=== PATIENT | female | born 1955 | race Caucasian/White ===

== ENCOUNTER 2017-03-28 07:53 | Day surgery (SDC) | payer MEDICARE ==
[~2017-03-28 07:53] MED LIST: Lactated Ringers 1,000 ML IV ONE; Lactated Ringers 1,000 ML IV SCH
[2017-03-28] MEDS ORDERED: DIPRIVAN 200 MG/20 ML IV ONE (07:54)
[2017-03-28] MEDS ORDERED: CEFAZOLIN 2 GM-D5W BAG** 2 GM/50 ML ML IV ONE (08:52)
[2017-03-28] MEDS ORDERED: CEFAZOLIN 2 GM-D5W BAG** 2 GM/50 ML ML IV SCH (09:00)
--- NOTE | 2017-03-28 09:32 | HP ---
DATE OF SURGERY: 03/28/2017 HISTORY OF PRESENT ILLNESS: A 61 year-old with multiple medical problems, had stroke in the past, CVA. She has had a gastrostomy tube for quite some time and exhausted now and in need of replacement. She is in need of upper endoscopy and removal of exhausted old G-tube and placement of PEG tube as an outpatient. PAST MEDICAL HISTORY: Atrial fibrillation, aphasia, diabetes, CVA in the past, depression, hypertension, reflux, convulsions in the past, neurogenic bladder, history of restless leg syndrome, neuropathy, insomnia in the past. She also had constipation in the past. 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 MEDICATIONS: [place], Baclofen, Lopressor, Keppra, Colace, docusate, lisinopril, Zestril, Xarelto, Sorbitol, Prozac, Ativan. She has some PRN medications per senior care paperwork. ALLERGIES: NKDA. FAMILY HISTORY: Noncontributory. SOCIAL HISTORY: No smoking or alcohol abuse. REVIEW OF SYSTEMS: Twelve systems reviewed per admission assessment. No chest pain or palpitations other systems negative or noncontributory as above and per preadmission questionnaire. PHYSICAL EXAMINATION: GENERAL: No acute distress. HEENT: Sclerae nonicteric. NECK: No JVD. CHEST: Clear to auscultation. CVS: Regular rate and rhythm. ABDOMEN: Soft. No peritoneal signs. EXTREMITIES: History of amputation in the past. Flaccid on one side from history of CVA in the past. NEURO: She is alert and oriented. IMPRESSION: History of stroke, CVA and dysphagia with exhausted old G-tube. I feel the patient would benefit from EGD, removal of exhausted old G-tube, placing a new PEG tube. Risks and benefits explained in detail including but not limited to bleeding or infection, risk of bowel injury or perforation possibly requiring open procedure, risk of missed or nondiagnosis, risk of leakage around the tube possibly removal or replacement at new location, possibility old bumper breaking off attachment going to the GI tract that could cause obstruction and require other procedures, general risk of anesthesia, deep venous thrombosis, pulmonary embolism, pneumonia, risk of sedation or aspiration but not limited to. She understands and agrees to the planned procedure, will proceed with removal of exhausted old gastrostomy tube and placing a new PEG tube as an outpatient.
[2017-03-28 11:45] VITALS: BP 120/64; PULSE 73; O2SAT 96
--- NOTE | 2017-03-29 12:59 | OP ---
SURGERY DATE/TIME: 03/28/2017 1017 PREOPERATIVE DIAGNOSIS: History of CVA and dysphagia, exhausted gastrostomy tube. POSTOPERATIVE DIAGNOSES: 1) Mild gastritis. 2) Exhausted old gastrostomy tube. 3) Unretrievable old gastrostomy tube bumper. PROCEDURES: 1) EGD with cold biopsy of the antrum to evaluate for Helicobacter pylori. 2) Removal of old gastrostomy tube (internal bumper unable to be removed). 3) Placement of new percutaneous endoscopic gastrostomy tube. SURGEON: Dr. Yusuf Hudson. ANESTHESIA: MAC. ESTIMATED BLOOD LOSS: Minimal. INDICATIONS: As noted above. Risks and benefits explained in detail and not limited to and consent obtained. DESCRIPTION OF PROCEDURE AND FINDINGS: The patient is taken to the operating room. MAC anesthesia introduced. After official time out and no disagreement with planned procedure, a bite block positioned. Video gastroscope easily passed down the esophagus through the patent pylorus to the junction of the second and third portion of the duodenum. No signs of any ulcers but the patient definitely had some gastritis. Cold biopsy taken in antrum to evaluate for Helicobacter pylori. The patient had had old exhausted gastrostomy tube. It was felt this needed to be replaced. Passed the guidewire through here. It was grasped with a snare and pulled up and out the pharynx, kept in position. At this point retraction of tube was accomplished. Whether the tube itself was defective or not, it was not on the bumper. The tube was then pulled back into the stomach where central bumper could be taken off the guidewire using combination of snare grasping this bumper with mesh bag was still unsuccessful with the bag kept breaking. There did not appear to be significant stricture here given the size of this. Did not have any tripod grasper or snare to get the bumper. The PEG tube was pulled back down abdominal wall and bumper placed. The bumper flush inside the gastric wall. Sterile dressing and clamped. The old bumper was left in the stomach. It was felt this would likely this would pass on through. It is the size of a small coin. Might need to consider laparoscopy or laparotomy at this time. The bumper was not able to be retrieved but it was felt would rather give it a chance to pass through on its own. The nursing staff contacted the family about this and if any questions I could be reached. Otherwise I will see him back in the office next week. If she does not pass this bumper on her own to bring and evaluate the position.
== END 2017-03-28 12:27 ==
LOC: SDC 07:53 → EDSTATUS 14:42
PROVIDERS: ATTEND Surgery
PROC: 0DB78ZX Excision of Stomach, Pylorus, Via Natural or Artificial Opening Endoscopic, Diagnostic (ICD-10-PCS; principal; 2017-03-28)
PROC: 0DH63UZ Insertion of Feeding Device into Stomach, Percutaneous Approach (ICD-10-PCS; 2017-03-28)
DX: K29.70 Gastritis, unspecified, without bleeding (principal); K94.23 Gastrostomy malfunction; Z86.73 Personal history of transient ischemic attack (TIA), and cerebral infarction without residual deficits; I48.91 Unspecified atrial fibrillation; Z79.01 Long term (current) use of anticoagulants; Z79.899 Other long term (current) drug therapy; I10 Essential (primary) hypertension; F32.9 Major depressive disorder, single episode, unspecified; E11.9 Type 2 diabetes mellitus without complications; K21.9 Gastro-esophageal reflux disease without esophagitis; G40.909 Epilepsy, unspecified, not intractable, without status epilepticus; N31.9 Neuromuscular dysfunction of bladder, unspecified; G62.9 Polyneuropathy, unspecified
CPT/HCPCS: 00731; 82962; 88305; 88312; J0690; J2704; L0625

== ENCOUNTER 2017-05-16 09:45 | Inpatient (IN) | payer MEDICARE ==
[2017-05-16] MEDS ORDERED: Sodium Chloride 0.9% 1000 ML 1,000 ML IV STA ×2 (09:47→10:16)
[2017-05-16] MEDS ORDERED: TYLENOL EXTRA STRENGTH 500 MG G-TUBE ONE (09:52)
[2017-05-16] MEDS ORDERED: Vancomycin 1GM/ Ns 250ML*** 1 GM/250 ML IVPB IV ONE (09:54)
[2017-05-16] MEDS ORDERED: Zosyn 3.375GM/100 Ml D5W 3.375 GM/100 ML IVPB IV STA (09:55)
--- NOTE | 2017-05-16 10:01 | ERPHSYRPT ---
- History of Present Illness Time Seen by Provider: 05/16/17 09:46 Source: patient, EMS Exam Limitations: clinical condition, physical impairment Physician History: 61 y/o female with history of CVA with paralysis, G-tube and right AKA as well as diabetes sent from [facility] for elevated blood sugar of 387. Upon arrival to the ER, patient has an elevated temp of 103 and is tachycardic in the 120's. Pt admits to having worsening cough over the last 2 days. Pt says she has no pain, nausea, vomiting, diarrhea, abdominal pain, chest pain or shortness of breath. Of note, patient had multiple episodes of vomiting last night. Timing/Duration: today Severity: moderate Allergies/Adverse Reactions: No Known Drug Allergies Allergy (Verified 03/25/17 15:32) Home Medications: Baclofen 20 mg PEG BID 03/28/14 [History] Bisacodyl 10 mg [Dulcolax 10 MG SUPP] 10 mg RC DAILY PRN 03/28/14 [History ] Fentanyl 25Mcg Patch [Duragesic 25MCG Patch] 25 mcg PEG Q3D 03/28/14 [ History] Fluoxetine HCl [Prozac] 40 mg PEG DAILY 03/28/14 [History] Multivitamin [Daily Multivitamin] 1 each PEG DAILY 03/28/14 [History] Omeprazole [Omeprazole+Syrspend Sf Alanna] 40 mg PEG DAILY 03/28/14 [History] Pravastatin Sodium 20 mg PEG HS 03/28/14 [History] Promethazine 6.25 mg/5 ml [Phenergan 6.25 mg/5 ml Syrup] 20 ml PEG DAILY 03/28/14 [History] Gabapentin [Neurontin] 300 mg G-TUBE DAILY 03/25/17 [History] Levetiracetam [Keppra] 100 mg G-TUBE BID 03/25/17 [History] Lisinopril [Zestril 40 mg] 40 mg G-TUBE DAILY 03/25/17 [History] Lorazepam 1 mg [Ativan 1 MG] 1 mg PO BID 03/25/17 [History] Mupirocin [Bactroban OINTMENT] 15 gm TP BID 03/25/17 [History] Oxybutynin Chloride 5 mg G-TUBE DAILY 03/25/17 [History] Docusate Sodium [Colace] 50 mg PO BID 03/28/17 [History] Hydrocodone/APAP 10/325 mg [Sarg[place] 10/325 MG Tablet] 1 tab PO Q6H PRN PRN 03/28/17 [History] Metoprolol Tartrate 25 mg [Lopressor 25MG Tab] 25 mg PO DAILY 03/28/17 [ History] Rivaroxaban 10 mg Tablet [Xarelto 10 mg Tablet] 10 mg PO DAILY 03/28/17 [ History] Sorbitol Solution [Sorbitol] 6 ml IR DAILY 03/28/17 [History] Hx Tetanus, Diphtheria Vaccination/Date Given: No (UNKNOWN) Hx Influenza Vaccination/Date Given: Yes (2010) Hx Pneumococcal Vaccination/Date Given: No (UNKNOWN) - Review of Systems Constitutional: Fever, Chills, Weakness Eyes: No Symptoms Ears, Nose, & Throat: No Symptoms Respiratory: Cough, No Dyspnea, No Dyspnea on Exertion (AQUINO) Cardiac: No Chest Pain, No Edema, No Syncope Abdominal/Gastrointestinal: No Abdominal Pain, No Nausea, No Vomiting, No Diarrhea Genitourinary Symptoms: No Dysuria, No Frequency, No Hematuria Musculoskeletal: No Back Pain, No Neck Pain Skin: No Rash Neurological: No Dizziness, No Focal Weakness, No Sensory Changes Psychological: No Symptoms Endocrine: No Symptoms All Other Systems: Reviewed and Negative - Past Medical History Pertinent Past Medical History: Yes Neurological History: Stroke ENT History: No Pertinent History Cardiac History: High Cholesterol, Hypertension Respiratory History: No Pertinent History Endocrine Medical History: Diabetes Type II Musculoskeletal History: Other GI Medical History: GERD, Other History: Other Psycho-Social History: Anxiety, Depression Female Reproductive Disorders: No Pertinent History Other Medical History: G-TUBE, APHASIA, URINARY URGENCY, EXPRESSIVE APASHIA, BACK PAIN, CONSTIPATION - Past Surgical History Past Surgical History: Yes Neuro Surgical History: No Pertinent History Cardiac: No Pertinent History Respiratory: No Pertinent History Gastrointestinal: Other Genitourinary: No Pertinent History Musculoskeletal: No Pertinent History Female Surgical History: No Pertinent History Other Surgical History: PEG TUBE PLACEMENT - Social History Smoking Status: Never smoker Exposure to second hand smoke: No Drug Use: none Patient Lives Alone: No - Nursing Vital Signs Nursing Vital Signs: Initial Vital Signs Temperature 103 F 05/16/17 09:48 Pulse Rate 115 H 05/16/17 09:48 Respiratory Rate 36 H 05/16/17 09:48 Blood Pressure 120/77 05/16/17 09:48 O2 Sat by Pulse Oximetry 93 L 05/16/17 09:48 Pain Scale Pain Intensity 0 - Physical Exam General Appearance: no apparent distress, alert Eye Exam: PERRL/EOMI, eyes nml inspection Ears, Nose, Throat Exam: normal ENT inspection, TMs normal, pharynx normal, moist mucous membranes Neck Exam: normal inspection, non-tender, supple, full range of motion Respiratory Exam: normal breath sounds, lungs clear, No respiratory distress Cardiovascular Exam: regular rate/rhythm, normal heart sounds, normal peripheral pulses, tachycardia Gastrointestinal/Abdomen Exam: soft, normal bowel sounds, No tenderness, No distention, No mass Back Exam: normal inspection, normal range of motion, No CVA tenderness, No vertebral tenderness Extremity Exam: normal inspection, normal range of motion, pelvis stable Neurologic Exam: alert, oriented x 3, cooperative, normal mood/affect, nml cerebellar function, nml station & gait, sensation nml, No motor deficits Skin Exam: normal color, warm, dry, No rash Lymphatic Exam: No adenopathy - Course Nursing assessment & vital signs reviewed: Yes EKG Interpreted by Me: Sinus Tach (HR 120) Ordered Tests: Active Orders 24 hr Category Date Time Status Hide Puller STAT Care 05/16/17 09:47 Active Cath for Specimen-Straight STAT Care 05/16/17 09:49 Inactive EKG-ER Only STAT Care 05/16/17 09:55 Active IV Insertion STAT Care 05/16/17 09:47 Active CHEST 1 VIEW (PORTABLE) Stat Exams 05/16/17 09:47 Completed CHEST WITHOUT CONTRAST [CT] Stat Exams 05/16/17 10:44 Completed BLOOD CULTURE Stat Lab 05/16/17 10:05 Received BNP [NT PRO BNP] Stat Lab 05/16/17 10:04 Received CBC W DIFF Stat Lab 05/16/17 10:04 Completed CMP Stat Lab 05/16/17 10:04 Completed CULTURE,URINE Stat Lab 05/16/17 10:15 Received Lactic Acid Urgent Lab 05/16/17 09:47 Results MAGNESIUM Stat Lab 05/16/17 10:04 Completed Manual Differential NC Stat Lab 05/16/17 10:04 Completed TROPONIN Q3H Lab 05/16/17 10:00 Completed TROPONIN Q3H Lab 05/16/17 13:00 Ordered TROPONIN Q3H Lab 05/16/17 16:00 Ordered TROPONIN Q3H Lab 05/16/17 19:00 Ordered TROPONIN Q3H Lab 05/16/17 22:00 Ordered UA W/ MICROSCOPIC Stat Lab 05/16/17 10:15 Completed VENOUS BLOOD GAS Urgent Lab 05/16/17 09:47 Results Medication Summary Generic Name Dose Route Start Last Admin Trade Name Freq PRN Reason Stop Dose Admin Insulin Human Regular 100 101 mls @ 6.87 mls/hr 05/16/17 11:08 units/ Sodium Chloride IV 06/15/17 11:07 .[id number] PRN DKA/HYPERGYCEMIA Protocol 0.1 UNITS/KG/HR Discontinued Medications Generic Name Dose Route Start Last Admin Trade Name Freq PRN Reason Stop Dose Admin Acetaminophen 1,000 mg 05/16/17 09:52 Tylenol Extra Strength 500 Mg G-TUBE 05/16/17 09:53 STAT ONE Sodium Chloride 1,000 mls @ 999 mls/hr 05/16/17 09:47 05/16/17 10:25 Sodium Chloride 0.9% 1000 Ml IV 05/16/17 10:47 999 mls/hr .Q1H1M STA Administration Vancomycin HCl 1 gm in 250 mls @ 167 mls/hr 05/16/17 09:54 Vancomycin 1gm/ Ns 250ml IV 05/16/17 11:23 STAT ONE Piperacillin Sod/Tazobactam Sod 3.375 gm in 100 mls @ 200 mls/hr 05/16/17 09: 55 05/16/17 10:25 Zosyn 3.375gm/100 Ml D5w IV 05/16/17 10:24 200 mls/hr STAT STA Administration Sodium Chloride 1,000 mls @ 999 mls/hr 05/16/17 10:16 Sodium Chloride 0.9% 1000 Ml IV 05/16/17 11:16 .Q1H1M STA Sodium Chloride Confirm 05/16/17 10:22 Sodium Chloride 0.9% 1000 Ml Administered 05/16/17 10:23 Dose 1,000 mls @ ud .ROUTE .STK-MED ONE Piperacillin Sod/Tazobactam Sod Confirm 05/16/17 10:22 Zosyn 3.375gm/100 Ml D5w Administered 05/16/17 10:23 Dose 3.375 gm in 100 mls @ ud IV .STK-MED ONE Insulin Human Regular 10 unit 05/16/17 10:16 05/16/17 10:25 Novolin R IV 05/16/17 10:17 10 unit STAT ONE Administration Insulin Human Regular Confirm 05/16/17 10:22 Novolin R Administered 05/16/17 10:23 Dose 10 unit .ROUTE .STK-MED ONE Ondansetron HCl 4 mg 05/16/17 10:02 05/16/17 10:24 Zofran 4 Mg/2 Ml Vial IV 05/16/17 10:03 4 mg STAT ONE Administration Ondansetron HCl Confirm 05/16/17 10:21 Zofran 4 Mg/2 Ml Vial Administered 05/16/17 10:22 Dose 4 mg .ROUTE .STK-MED ONE Lab/Rad Data: Laboratory Result Diagrams 05/16/17 10:04 05/16/17 10:04 Laboratory Results 05/16/17 05/16/17 05/16/17 Range/Units Unknown 10:15 10:04 WBC (4.0-10.5) K/mm3 RBC (4.1-5.4) M/mm3 Hgb (12.0-16.0) gm/dl Hct (35-47) % MCV (78-100) fl MCH (26-32) pg MCHC (32-36) g/dl RDW (11.5-14.0) % Plt Count (150-450) K/mm3 MPV (6-9.5) fl Segmented Neutrophils (36.0-66.0) % Band Neutrophils (0.0-2.0) % Lymphocytes (Manual) (24-44) % Monocytes (Manual) (0.0-12.0) % Differential Comment Platelet Estimate (NORMAL) pO2/FiO2 Ratio % VBG pH (7.32-7.42) VBG pCO2 at Pat Temp (42-55) mm/Hg VBG pO2 at Pat Temp (25-40) mm/Hg VBG HCO3 (22-28) meq/L VBG O2 Sat ([place]) (95-100) VBG Base Excess (-2.0-2.0) VBG Hemoglobin VBG Carboxyhemoglobin (0.0-6.9) % T HGB POC Potassium (3.5-5.1) Sodium 157 H* (137-145) mmol/L Potassium 3.7 (3.5-5.1) mmol/L Chloride 108 H (98-107) mmol/L Carbon Dioxide 23 (22-30) mmol/L Anion Gap 30.0 H (5-15) MEQ/L BUN 46 H (7-17) mg/dL Creatinine 1.09 H (0.52-1.04) mg/dL Estimated GFR 54 ML/MIN Glucose 783 H* (74-106) mg/dL Lactic Acid (0.4-2.0) Calcium 11.6 H (8.4-10.2) mg/dL Magnesium 3.0 H (1.6-2.3) mg/dL Total Bilirubin 0.60 (0.2-1.3) mg/dL AST 33 (14-36) U/L ALT 32 (0-35) U/L Alkaline Phosphatase 138 H (38-126) U/L Troponin I (0.000-0.034) ng/mL Serum Total Protein 8.8 H (6.3-8.2) g/dL Albumin 4.8 (3.5-5.0) g/dL Ur Collection Type CLEAN CATCH Urine Color YELLOW (YELLOW) Urine Appearance CLOUDY (CLEAR) Urine pH 5.0 (5-6) Ur Specific [place] 1.020 (1.005-1.025) Urine Protein 300 (Negative) Urine Ketones TRACE (NEGATIVE) Urine Blood 250 (0-5) Isiah/ul Urine Nitrite NEGATIVE (NEGATIVE) Urine Bilirubin NEGATIVE (NEGATIVE) Urine Urobilinogen NORMAL (0-1) mg/dL Ur Leukocyte Esterase 2+ (NEGATIVE) Urine Microscopic WBC >100 (0-5) /HPF Urine Bacteria PACKED (NEGATIVE) /HPF Urine Culture Reflexed YES (NO) Urine Glucose 1000 (NEGATIVE) mg/dL Influenza Type A Ag NEGATIVE (NEGATIVE) Influenza Type B Ag NEGATIVE (NEGATIVE) RSV (PCR) NEGATIVE (Negative) Specimen Received 05-16-17 1020 05/16/17 05/16/17 05/16/17 Range/Units 10:04 10:00 09:47 WBC 27.7 H* (4.0-10.5) K/mm3 RBC 5.81 H (4.1-5.4) M/mm3 Hgb 17.3 H (12.0-16.0) gm/dl Hct 55.3 H (35-47) % MCV 95.2 (78-100) fl MCH 29.7 (26-32) pg MCHC 31.3 L (32-36) g/dl RDW 16.5 H (11.5-14.0) % Plt Count 499 H (150-450) K/mm3 MPV 12.2 H (6-9.5) fl Segmented Neutrophils 90 H (36.0-66.0) % Band Neutrophils 1 (0.0-2.0) % Lymphocytes (Manual) 6 L (24-44) % Monocytes (Manual) 3 (0.0-12.0) % Differential Comment NORMAL Platelet Estimate NORMAL (NORMAL) pO2/FiO2 Ratio 21.0 % VBG pH 7.43 H (7.32-7.42) VBG pCO2 at Pat Temp 37 L (42-55) mm/Hg VBG pO2 at Pat Temp 40 (25-40) mm/Hg VBG HCO3 24.6 (22-28) meq/L VBG O2 Sat ([place]) 85.2 L (95-100) VBG Base Excess 0.6 (-2.0-2.0) VBG Hemoglobin 17.9 VBG Carboxyhemoglobin 3.2 (0.0-6.9) % T HGB POC Potassium 3.7 (3.5-5.1) Sodium (137-145) mmol/L Potassium (3.5-5.1) mmol/L Chloride (98-107) mmol/L Carbon Dioxide (22-30) mmol/L Anion Gap (5-15) MEQ/L BUN (7-17) mg/dL Creatinine (0.52-1.04) mg/dL Estimated GFR ML/MIN Glucose (74-106) mg/dL Lactic Acid 7.5 H (0.4-2.0) Calcium (8.4-10.2) mg/dL Magnesium (1.6-2.3) mg/dL Total Bilirubin (0.2-1.3) mg/dL AST (14-36) U/L ALT (0-35) U/L Alkaline Phosphatase (38-126) U/L Troponin I 0.088 H* (0.000-0.034) ng/mL Serum Total Protein (6.3-8.2) g/dL Albumin (3.5-5.0) g/dL Ur Collection Type Urine Color (YELLOW) Urine Appearance (CLEAR) Urine pH (5-6) Ur Specific [place] (1.005-1.025) Urine Protein (Negative) Urine Ketones (NEGATIVE) Urine Blood (0-5) Isiah/ul Urine Nitrite (NEGATIVE) Urine Bilirubin (NEGATIVE) Urine Urobilinogen (0-1) mg/dL Ur Leukocyte Esterase (NEGATIVE) Urine Microscopic WBC (0-5) /HPF Urine Bacteria (NEGATIVE) /HPF Urine Culture Reflexed (NO) Urine Glucose (NEGATIVE) mg/dL Influenza Type A Ag (NEGATIVE) Influenza Type B Ag (NEGATIVE) RSV (PCR) (Negative) Specimen Received - Progress Progress: improved Progress Note: 05/16/17 11:38 Pt is in HHS with an anion gap of 26, normal bicarb, normal pH, trace ketones and a glucose over 700. Pt was started on 2 bags of NS fluids and 10 units of regular insulin and an insulin drip. Pt also has a Na of 157. Pt also has a white count of 27,000 and was empirically started on zosyn and vancomycin. The CXR is unremarkable. The CT chest shows bilateral atelectasis. The UA shows a UTI. Pt has an elevated troponin of 0.088 that could be from sepsis. Pt has been admitted to Dr Atkins for sepsis, HHS and hypernatremia. 05/16/17 11:46 - Departure Time of Disposition: 11:50 Departure Disposition: In-patient Admission Clinical Impression: Uncontrolled type 2 DM with hyperosmolar nonketotic hyperglycemia, Hypernatremia Sepsis Qualifiers: Sepsis type: sepsis due to unspecified organism Qualified Code(s): A41.9 - Sepsis, unspecified organism Condition: Serious Critical Care Time: Yes Critical Care Time(excluding separately billable procedures): 75-104 minutes Referrals: DONALDO STRONG [Primary Care Provider] -
[2017-05-16] MEDS ORDERED: Zofran 4 MG/2 ML VIAL IV ONE (10:02)
[2017-05-16 10:10] LABS: Lactic Acid 7.5 (0.4-2.0); VBG BASE EXCESS 0.6 (-2.0-2.0); VBG CARBOXYHEMOGLOBIN 3.2 % T HGB (0.0-6.9); VBG HCO3- 24.6 meq/L (22-28); VBG HEMOGLOBIN 17.9; VBG O2 SATURATION 85.2 (95-100); VBG PCO2 37 mm/Hg (42-55); VBG PO2 40 mm/Hg (25-40); VBG POTASSIUM 3.7 (3.5-5.1); VBG pH 7.43 (7.32-7.42)
[2017-05-16 10:14] LABS: Hematocrit 55.3 % (35-47); Hemoglobin 17.3 gm/dl (12.0-16.0); Mean Cell Volume 95.2 fl (78-100); Mean Corpuscular Hgb Concent. 31.3 g/dl (32-36); Mean Platelet Volume 12.2 fl (6-9.5); Platelet Count 499 K/mm3 (150-450); Red Blood Count 5.81 M/mm3 (4.1-5.4); Red Cell Distribution Width 16.5 % (11.5-14.0)
[2017-05-16] MEDS ORDERED: NovoLIN R IV ONE (10:16)
[2017-05-16 10:18] LABS: Mean Corpuscular Hemoglobin 29.7 pg (26-32); White Blood Count 27.7 K/mm3 (4.0-10.5)
[2017-05-16 10:20] LABS: Appearance CLOUDY (CLEAR); Bilirubin NEGATIVE (NEGATIVE); Blood 250 Ery/ul (0-5); Glucose 1000 mg/dL (NEGATIVE); Ketones TRACE (NEGATIVE); Leukocyte Esterase 2+ (NEGATIVE); Nitrite NEGATIVE (NEGATIVE); Protein,Urine Dip 300 (Negative); Urobilinogen NORMAL mg/dL (0-1)
[2017-05-16] MEDS ORDERED: Zofran 4 MG/2 ML VIAL ONE (10:21)
[2017-05-16] MEDS ORDERED: Sodium Chloride 0.9% 1000 ML 1,000 ML ONE (10:22)
[2017-05-16] MEDS ORDERED: Zosyn 3.375GM/100 Ml D5W 3.375 GM/100 ML IVPB IV ONE (10:22)
[2017-05-16] MEDS ORDERED: NovoLIN R ONE (10:22)
[2017-05-16 10:31] LABS: Bacteria PACKED /HPF (NEGATIVE); WBC >100 /HPF (0-5)
[2017-05-16 10:33] LABS: ALBUMIN 4.8 g/dL (3.5-5.0); BILIRUBIN,TOTAL 0.6 mg/dL (0.2-1.3); Calcium 11.6 mg/dL (8.4-10.2); Creatinine 1 1.09 mg/dL (0.52-1.04); Potassium 3.7 mmol/L (3.5-5.1); Total Protein 8.8 g/dL (6.3-8.2)
[2017-05-16 10:38] LABS: BAND 1 % (0.0-2.0); Lymphocytes 6 % (24-44); Monocyte 3 % (0.0-12.0); Neutrophils 90 % (36.0-66.0); Platelet Estimate NORMAL (NORMAL); Total Cells Counted 100
--- NOTE | 2017-05-16 10:43 | XRAY ---
Indication: Cough. Comparison: April 02, 2014. Portable chest slightly underinflated demonstrating normal heart and lungs. Bony thorax intact. No new/acute findings.
[2017-05-16 11:02] LABS: INFLUENZA A NEGATIVE (NEGATIVE); INFLUENZA B NEGATIVE (NEGATIVE); RESPIRATORY SYNCTIAL VIRUS NEGATIVE (Negative)
--- NOTE | 2017-05-16 11:28 | XRAY ---
Indication: Fever and cough. Multiple contiguous axial images obtained through the chest without contrast as ordered. Comparison: None Study slightly degraded by respiration artifact and slight underinflation. Minimal bibasilar subsegmental atelectasis. 5 mm peripheral right upper lobe noncalcified nodule. No infiltrate or effusion. Heart is not enlarged. Aorta minimally calcified without aneurysmal dilatation. No pathologic mediastinal lymphadenopathy. Bony thorax intact with minimal degenerative changes throughout the spine. Limited upper abdomen demonstrates cholecystectomy clips, PEG tube, and 2.2 cm left renal cyst. Impression: 1. Limited exam due to underinflated lungs and respiration artifact. 2. Bibasilar atelectasis. No acute cardiopulmonary abnormalities on this noncontrast exam. 3. Peripheral right upper lobe noncalcified micronodule possibly granulomatous in this demographic. 4. Left renal cyst. CTDI 17.38
[2017-05-16] MEDS ORDERED: Zofran 4 MG/2 ML VIAL IV PRN (11:53)
[2017-05-16] MEDS ORDERED: Vancomycin 1GM/ Ns 250ML*** 250 ML IV ONE (12:12)
[2017-05-16] MEDS ORDERED: TYLENOL SUSPENSION 160 MG/5 ML ONE (12:27)
[2017-05-16 12:53] LABS: Lactic Acid 4.3 (0.4-2.0)
[2017-05-16] MEDS: NOVOLIN R INSULIN (FOR DRIPS)** 100 UNITS in Sodium Chloride 0.9% 100 ML IVPB 100 ML IV PRN (14:27)
[2017-05-16] MEDS: LEVOFLOXACIN 750MG/150ML D5W 750 MG/150 ML BAG IV SCH (14:27)
--- NOTE | 2017-05-16 15:11 | PCM.HP ---
History of Present Illness - Chief Complaint Chief Complaint: DKA History of Present Illness: is a 61 year old female from [facility] with hx CVA with hemiparesis and dysphagia, diabetic, who comes to ER with elevated BS, up to 700s. She was found to be tachycardic with lactate over 7 so was started on IV vancomycin, levaquin, and zosyn. UA with > 100 WBC. WBC (serum) 27,700. She is tachypneic. Her second bag of IV fluid is in process. She is oriented to person but not place or time - has dementia and expressive aphasia on her list of diagnoses. She had a DNR order at the [facility] but is now telling the nurse she wants to be a full code. Pt has a feeding tube secondary to CVA and an amputation of RLE secondary to DM. - Review of Systems All Other Systems: Unable due to dementia Medications & Allergies Home Medications: Home Medication List Baclofen 20 mg PEG BID 03/28/14 [History Confirmed 03/28/17] Bisacodyl 10 mg [Dulcolax 10 MG SUPP] 10 mg RC DAILY PRN 03/28/14 [ History Confirmed 03/28/17] Fentanyl 25Mcg Patch [Duragesic 25MCG Patch] 25 mcg PEG Q3D 03/28/14 [ History Confirmed 03/28/17] Fluoxetine HCl [Prozac] 40 mg PEG DAILY 03/28/14 [History Confirmed 03/28/17] Multivitamin [Daily Multivitamin] 1 each PEG DAILY 03/28/14 [History Confirmed 03/28/17] Omeprazole [Omeprazole+Syrspend Sf Alanna] 40 mg PEG DAILY 03/28/14 [History Confirmed 03/28/17] Pravastatin Sodium 20 mg PEG HS 03/28/14 [History Confirmed 03/28/17] Promethazine 6.25 mg/5 ml [Phenergan 6.25 mg/5 ml Syrup] 20 ml PEG DAILY 03/28/14 [History Confirmed 03/28/17] Gabapentin [Neurontin] 300 mg G-TUBE DAILY 03/25/17 [History Confirmed 03/28/17] Levetiracetam [Keppra] 100 mg G-TUBE BID 03/25/17 [History Confirmed 03/28/17] Lisinopril [Zestril 40 mg] 40 mg G-TUBE DAILY 03/25/17 [History Confirmed ] Lorazepam 1 mg [Ativan 1 MG] 1 mg PO BID 03/25/17 [History Confirmed 03/28] Mupirocin [Bactroban OINTMENT] 15 gm TP BID 03/25/17 [History Confirmed ] Oxybutynin Chloride 5 mg G-TUBE DAILY 03/25/17 [History Confirmed 03/28/17] Aspirin 81 mg PEG DAILY #0 03/28/17 [Rx Confirmed 03/25/17] Docusate Sodium [Colace] 50 mg PO BID 03/28/17 [History Confirmed 03/28/17] Hydrocodone/APAP 10/325 mg [Sc[place]io 10/325 MG Tablet] 1 tab PO Q6H PRN PRN 03/28/17 [History Confirmed 03/28/17] Metoprolol Tartrate 25 mg [Lopressor 25MG Tab] 25 mg PO DAILY 03/28/17 [ History Confirmed 03/28/17] Rivaroxaban 10 mg Tablet [Xarelto 10 mg Tablet] 10 mg PEG DAILY #0 [Rx Confirmed 03/25/17] Rivaroxaban 10 mg Tablet [Xarelto 10 mg Tablet] 10 mg PO DAILY 03/28/17 [ History Confirmed 03/28/17] Sorbitol Solution [Sorbitol] 6 ml IR DAILY 03/28/17 [History Confirmed 03/28/17] Allergies/Adverse Reactions: Allergies Allergy/AdvReac Type Severity Reaction Status Date / Time No Known Drug Allergies Allergy Verified 03/25/17 15:32 - Past Medical History Past Medical History: Yes Neurological History: Stroke ENT History: No Pertinent History Cardiac History: Arrhythmia, High Cholesterol, Hypertension Respiratory History: No Pertinent History Endocrine Medical History: Diabetes Type II Musculoskelatal History: Other GI Medical History: GERD, Other History: Other Pyscho-Social History: Anxiety, Depression Reproductive Disorders: No Pertinent History Comment: G-TUBE, DYSPHAGIA, EXPRESSIVE LANGUAGE DISORDER, HTN, URINARY URGENCY, EXPRESSIVE APASHIA, BACK PAIN, CONSTIPATION AFIB, VASCULAR DEMENTIA WITH BEHAVIORAL DISTURBANCE, CHRONIC PAIN SYNDROME, CONVULSIONS, GERD, ANXIETY, NEUROMUSCULAR RESTLESS LEGS, POLYNEUROPATHY, INSOMNIA, CONTRACTURE LEFT ANKLE, - Female History Are you now?: No - Past Surgical History Past Surgical History: Yes Neuro Surgical History: No Pertinent History Cardiac History: No Pertinent History Respiratory Surgery: No Pertinent History GI Surgical History: Cholecystectomy, Other Genitourinary Surgical Hx: No Pertinent History Musculskeletal Surgical Hx: No Pertinent History Female Surgical History: No Pertinent History Other Surgical History: PEG TUBE PLACEMENT - Social History Smoking Status: Never smoker Exposure to second hand smoke: No Alcohol: None Drug Use: none - Physical Exam Vital Signs: Vital Signs - 24 hr Temp Pulse Resp BP Pulse Ox 05/16/17 13:27 115 H 32 H 159/72 95 05/16/17 12:52 116 H 28 H 134/81 92 L 05/16/17 11:40 120 H 30 H 138/78 91 L 05/16/17 10:36 119 H 32 H 136/84 90 L 05/16/17 09:48 103 F 115 H 36 H 120/77 93 L Oxygen-Last 24 hours O2 Percentage 2 Liters = 28% O2 Percentage 2 Liters = 28% O2 Percentage 2 Liters = 28% General Appearance: no apparent distress, alert Neurologic Exam: cooperative, disoriented, other (slurred speech) Eye Exam: other (L eyelid unable to fully close) Ears, Nose, Throat Exam: moist mucous membranes Respiratory Exam: normal breath sounds, lungs clear, No crackles/rales, No rhonchi, No wheezing Cardiovascular Exam: regular rate/rhythm, normal heart sounds, No murmur Gastrointestinal/Abdomen Exam: soft, tenderness (diffuse), No distention, No mass, No guarding, No rebound Extremity Exam: No pedal edema, No swelling (none on L; distal RLE absent due to remote amputation) Skin Exam: normal color, warm, dry, No rash Results - Labs Lab/Micro Results: Accuchecks Date 05/16/17 Time 14:00 Accucheck Value: 537 Lab Results-Last 24 Hours 05/16/17 Range/Units Unknown Influenza Type A Ag NEGATIVE (NEGATIVE) Influenza Type B Ag NEGATIVE (NEGATIVE) RSV (PCR) NEGATIVE (Negative) Accuchecks Date 05/16/17 Time 14:00 Accucheck Value: 537 Assessment/Plan (1) Sepsis Current Visit: Yes Status: Acute Qualifiers: Sepsis type: sepsis due to unspecified organism Qualified Code(s): A41.9 - Sepsis, unspecified organism Assessment & Plan: She is getting her 30mg/kg bolus of NS. On IV vancomycin, levaquin, and zosyn ( day #1). Her lactate has improved from 7 to 4. (2) UTI (urinary tract infection) Current Visit: Yes Status: Acute Qualifiers: Urinary tract infection type: acute pyelonephritis Qualified Code(s): N10 - Acute pyelonephritis Code(s): N39.0 - URINARY TRACT INFECTION, SITE NOT SPECIFIED (3) Hypernatremia Current Visit: Yes Status: Acute Assessment & Plan: rechecking Code(s): E87.0 - HYPEROSMOLALITY AND HYPERNATREMIA (4) Uncontrolled type 2 DM with hyperosmolar nonketotic hyperglycemia Current Visit: Yes Status: Acute Assessment & Plan: Stay on insulin drip until BS < 200, then change to regular insulin. Code(s): E11.00 - TYPE 2 DIAB W HYPROSM W/O NONKET HYPRGLY-HYPROS [facility] ([facility])
[2017-05-16] MEDS: Sodium Chloride 0.9% 1000 ML 1,000 ML IV SCH ×2 (15:15→22:07)
[2017-05-16 16:17] LABS: Lactic Acid 3.6 (0.4-2.0)
[2017-05-16 16:58] LABS: ANION GAP 18.8 MEQ/L (5-15); BLOOD UREA NITROGEN 40 mg/dL (7-17); CHLORIDE 116 mmol/L (98-107); Calcium 9.8 mg/dL (8.4-10.2); Carbon Dioxide 26 mmol/L (22-30); Creatinine 1 0.91 mg/dL (0.52-1.04); Glucose 451 mg/dL (74-106)
[2017-05-16] MEDS: Zosyn 3.375GM/100 Ml D5W 3.375 GM/100 ML IVPB IV SCH (17:10)
[2017-05-16 17:25] LABS: SODIUM 158 mmol/L (137-145)
[2017-05-16 17:26] LABS: Potassium 2.9 mmol/L (3.5-5.1)
[2017-05-16] MEDS: POTASSIUM CHLORIDE 20 mEq IN WATER 100ML 20 MEQ/100 ML BAG IV SCH ×2 (18:26→20:31)
[2017-05-16] MEDS ORDERED: Zanaflex 4 MG PEG PRN (20:55)
[2017-05-16] MEDS ORDERED: Ativan 1 MG PEG PRN (20:57)
[2017-05-16] MEDS ORDERED: TYLENOL 325 MG PEG PRN (21:00)
[2017-05-16] MEDS ORDERED: COLACE Liquid 50 MG/5 ML PEG PRN (21:02)
[2017-05-16] MEDS ORDERED: Dulcolax 10 MG SUPP PR PRN (21:04)
[2017-05-16] MEDS ORDERED: Lopressor 25MG Tab PEG SCH (22:00)
[2017-05-16] MEDS ORDERED: LIORESAL 10 MG PEG SCH (22:00)
[2017-05-16] MEDS ORDERED: KEPPRA 500 MG PEG SCH (22:00)
[2017-05-16] MEDS ORDERED: Norco 10/325 MG Tablet PEG SCH (22:00)
[2017-05-16] MEDS ORDERED: Dextrose 5% -0.45 NaCl 1000 ML 1,000 ML IV SCH (22:15)
[2017-05-16] MEDS: D5W/0.45NS W/ 20mEq KCl 1000 ML 1,000 ML IV SCH (22:32)
[2017-05-17] MEDS: Zosyn 3.375GM/100 Ml D5W 3.375 GM/100 ML IVPB IV SCH ×5 (00:04→23:48)
[2017-05-17 00:44] LABS: ANION GAP 14.9 MEQ/L (5-15); BLOOD UREA NITROGEN 31 mg/dL (7-17); CHLORIDE 118 mmol/L (98-107); Calcium 9.3 mg/dL (8.4-10.2); Carbon Dioxide 28 mmol/L (22-30); Creatinine 1 0.76 mg/dL (0.52-1.04); Glucose 166 mg/dL (74-106)
[2017-05-17 00:47] LABS: SODIUM 157 mmol/L (137-145)
[2017-05-17 03:00] LABS: ANION GAP 15.1 MEQ/L (5-15); BLOOD UREA NITROGEN 29 mg/dL (7-17); CHLORIDE 117 mmol/L (98-107); Calcium 9.2 mg/dL (8.4-10.2); Carbon Dioxide 27 mmol/L (22-30); Creatinine 1 0.72 mg/dL (0.52-1.04); Glucose 222 mg/dL (74-106); Potassium 4.1 mmol/L (3.5-5.1)
[2017-05-17 03:10] LABS: SODIUM 154 mmol/L (137-145)
[2017-05-17] MEDS: D5W/0.45NS W/ 20mEq KCl 1000 ML 1,000 ML IV SCH (05:36)
[2017-05-17 05:52] LABS: BASOPHIL % 0.1 % (0.0-0.4); Basophil (Absolute #) 0.03 (0-0.4); Eosinophil (Absolute #) 0.01 (0-0.5); Granulocyte Absolute (ANC) 15.27 (1.4-6.9); Granulocytes % 72.6 % (36.0-66.0); Hematocrit 44.6 % (35-47); Hemoglobin 13.5 gm/dl (12.0-16.0); Lymphocyte (Absolute #) 4.07 (1.0-4.6); Lymphocytes % 19.3 % (24.0-44.0); Mean Cell Volume 98.2 fl (78-100); Mean Corpuscular Hemoglobin 29.7 pg (26-32); Mean Corpuscular Hgb Concent. 30.3 g/dl (32-36); Mean Platelet Volume 11.2 fl (6-9.5); Monocyte (Absolute #) 1.69 (0.0-1.3); Platelet Count 265 K/mm3 (150-450); Red Blood Count 4.54 M/mm3 (4.1-5.4); Red Cell Distribution Width 16.1 % (11.5-14.0); White Blood Count 21.1 K/mm3 (4.0-10.5)
[2017-05-17 06:06] LABS: Lactic Acid 2.1 (0.4-2.0)
[2017-05-17 06:08] LABS: ALBUMIN 3.2 g/dL (3.5-5.0); ALKALINE PHOSPHATASE 75 U/L (38-126); ANION GAP 15.3 MEQ/L (5-15); BLOOD UREA NITROGEN 25 mg/dL (7-17); CHLORIDE 115 mmol/L (98-107); Calcium 8.9 mg/dL (8.4-10.2); Carbon Dioxide 28 mmol/L (22-30); Creatinine 1 0.75 mg/dL (0.52-1.04); Glucose 263 mg/dL (74-106); Potassium 3.9 mmol/L (3.5-5.1); SGOT/AST 26 U/L (14-36); SGPT/ALT 22 U/L (0-35)
[2017-05-17 06:14] LABS: SODIUM 155 mmol/L (137-145)
[2017-05-17] MEDS ORDERED: Sodium Chloride 0.9% 500 ML 500 ML IV ONE (06:41)
[2017-05-17 07:12] LABS: Slide Review 1 YES
[2017-05-17] MEDS ORDERED: MAALOX ES 30 ML UNIT DOSE PO PRN (07:12)
[2017-05-17] MEDS ORDERED: Zanaflex 4 MG G-TUBE PRN (07:15)
[2017-05-17] MEDS ORDERED: TYLENOL 325 MG G-TUBE PRN (07:15)
[2017-05-17] MEDS ORDERED: Ativan 1 MG G-TUBE PRN (07:15)
[2017-05-17] MEDS ORDERED: COLACE Liquid 50 MG/5 ML G-TUBE PRN (07:15)
[2017-05-17] MEDS: Duragesic 25MCG Patch TD SCH (08:43)
[2017-05-17] MEDS: Prozac 20 MG G-TUBE SCH (08:44)
[2017-05-17] MEDS: XARELTO 10 MG TABLET G-TUBE SCH (08:44)
[2017-05-17] MEDS: PROTONIX 40 MG IV IV SCH (08:44)
[2017-05-17] MEDS: Lopressor 25MG Tab G-TUBE SCH ×2 (08:44→21:11)
--- NOTE | 2017-05-17 08:44 | PCM.NOTE ---
Date and Time: 05/17/17838 Subjective Assessment: Pt is feeling very hungry this morning. She did not have tube feeds yesterday. Overnight her sodium improved a bit, from 158 to 154. Her BS are between 200 and 300 on insulin drip at about 3 units/hr. She denies any complaints. - Review of Systems Constitutional: No Fever Objective Exam General Appearance: no apparent distress, alert Neurologic Exam: cooperative, other (slurred speech, some expressive aphasia) Skin Exam: normal color, warm, dry, No rash Respiratory Exam: normal breath sounds, crackles/rales (bases bilaterally), No rhonchi, No wheezing Cardiovascular Exam: regular rate/rhythm, normal heart sounds, No murmur Extremity Exam: other (s/p remote amputation RLE), No pedal edema Back Exam: normal inspection, No rash OBJECTIVE DATA Vital Signs: Vital Signs - 24 hr Temp Pulse Resp BP Pulse Ox 05/17/17 08:00 98.6 F 97 H 22 164/71 91 L 05/17/17 06:53 99 H 24 138/72 96 05/17/17 06:00 95 H 20 143/62 96 05/17/17 05:00 94 H 23 144/62 96 05/17/17 04:00 99.2 F 91 H 24 150/65 99 05/17/17 03:38 92 H 05/17/17 03:00 91 H 24 142/60 98 05/17/17 02:00 93 H 23 142/59 97 05/17/17 01:00 92 H 22 135/62 97 05/17/17 00:01 94 H 05/17/17 00:00 100 F 91 H 16 137/66 97 05/16/17 23:00 91 H 17 144/71 96 05/16/17 22:00 94 H 16 136/71 96 05/16/17 21:00 123 H 18 150/74 95 05/16/17 19:43 100.1 F 115 H 15 124/78 95 05/16/17 18:49 116 H 35 H 146/68 92 L 05/16/17 18:00 118 H 31 H 142/66 92 L 05/16/17 17:00 117 H 28 H 148/73 92 L 05/16/17 16:00 100.6 F 114 H 32 H 153/69 95 05/16/17 15:00 112 H 26 H 147/70 96 05/16/17 14:43 99.6 F 114 H 32 H 143/73 94 L 05/16/17 13:27 115 H 32 H 159/72 95 05/16/17 12:52 116 H 28 H 134/81 92 L 05/16/17 11:40 120 H 30 H 138/78 91 L 05/16/17 10:36 119 H 32 H 136/84 90 L 05/16/17 09:48 103 F 115 H 36 H 120/77 93 L Oxygen-Last 24 hours O2 Percentage 2 Liters = 28% O2 Percentage 2 Liters = 28% O2 Percentage 2 Liters = 28% O2 Percentage 2 Liters = 28% O2 Percentage 2 Liters = 28% O2 Percentage 2 Liters = 28% O2 Percentage 2 Liters = 28% O2 Percentage 2 Liters = 28% O2 Percentage 2 Liters = 28% O2 Percentage 2 Liters = 28% O2 Percentage 2 Liters = 28% O2 Percentage 2 Liters = 28% O2 Percentage 2 Liters = 28% O2 Percentage 2 Liters = 28% O2 Percentage 2 Liters = 28% O2 Percentage 2 Liters = 28% O2 Percentage 2 Liters = 28% O2 Percentage 2 Liters = 28% O2 Percentage 2 Liters = 28% O2 Percentage 2 Liters = 28% O2 Percentage 2 Liters = 28% O2 Percentage 2 Liters = 28% Pain Assessment - Last Documented Pain Intensity 0 Pain Scale Used 0-10 Pain Scale Intake and Output: Intake & Output 05/14/17 05/15/17 05/16/17 05/17/17 11:59 11:59 11:59 11:59 Intake Total 4235 Output Total 1100 Balance 3135 Weight 70.4 kg Lab Results: Accuchecks Date 05/17/17 Date 05/17/17 Date 05/17/17 Date 05/17/17 Date 05/17/17 Date 05/17/17 Date 05/17/17 Date 05/17/17 Date 05/17/17 Date 05/16/17 Date 05/16/17 Date 05/16/17 Date 05/16/17 Date 05/16/17 Date 05/16/17 Date 05/16/17 Date 05/16/17 Date 05/16/17 Date 05/16/17 Time 08:00 Time 07:00 Time 06:00 Time 05:00 Time 04:00 Time 03:00 Time 02:00 Time 01:00 Time 00:00 Time 23:00 Time 22:00 Time 21:00 Time 20:00 Time 18:52 Time 18:00 Time 17:00 Time 16:00 Time 15:00 Time 14:00 Accucheck Value: 239 Accucheck Value: 281 Accucheck Value: 243 Accucheck Value: 232 Accucheck Value: 270 Accucheck Value: 251 Accucheck Value: 188 Accucheck Value: 148 Accucheck Value: 189 Accucheck Value: 111 Accucheck Value: 229 Accucheck Value: 202 Accucheck Value: 222 Accucheck Value: 270 Accucheck Value: 336 Accucheck Value: 424 Accucheck Value: 482 Accucheck Value: 537 Lab Results-Last 24 Hours 05/16/17 05/16/17 05/16/17 Range/Units 14:53 16:06 16:06 WBC (4.0-10.5) K/mm3 RBC (4.1-5.4) M/mm3 Hgb (12.0-16.0) gm/dl Hct (35-47) % MCV (78-100) fl MCH (26-32) pg MCHC (32-36) g/dl RDW (11.5-14.0) % Plt Count (150-450) K/mm3 MPV (6-9.5) fl Gran % (36.0-66.0) % Eos # (Auto) (0-0.5) Absolute Lymphs (auto) (1.0-4.6) Absolute Monos (auto) (0.0-1.3) Lymphocytes % (24.0-44.0) % Monocytes % (0.0-12.0) % Eosinophils % (0.00-5.0) % Basophils % (0.0-0.4) % Absolute Granulocytes (1.4-6.9) Basophils # (0-0.4) Sodium 158 H* (137-145) mmol/L Potassium 2.9 L* (3.5-5.1) mmol/L Chloride 116 H (98-107) mmol/L Carbon Dioxide 26 (22-30) mmol/L Anion Gap 18.8 H (5-15) MEQ/L BUN 40 H (7-17) mg/dL Creatinine 0.91 (0.52-1.04) mg/dL Estimated GFR > 60 ML/MIN Glucose 451 H (74-106) mg/dL Lactic Acid 3.6 H (0.4-2.0) Calcium 9.8 (8.4-10.2) mg/dL Magnesium (1.6-2.3) mg/dL Total Bilirubin (0.2-1.3) mg/dL AST (14-36) U/L ALT (0-35) U/L Alkaline Phosphatase (38-126) U/L Troponin I 0.097 H* (0.000-0.034) ng/mL Serum Total Protein (6.3-8.2) g/dL Albumin (3.5-5.0) g/dL Prealbumin (17.6-36.0) mg/dL Influenza Type A Ag (NEGATIVE) Influenza Type B Ag (NEGATIVE) RSV (PCR) (Negative) Slides for Path Review 05/16/17 05/16/17 05/16/17 Range/Units 19:26 22:41 Unknown WBC (4.0-10.5) K/mm3 RBC (4.1-5.4) M/mm3 Hgb (12.0-16.0) gm/dl Hct (35-47) % MCV (78-100) fl MCH (26-32) pg MCHC (32-36) g/dl RDW (11.5-14.0) % Plt Count (150-450) K/mm3 MPV (6-9.5) fl Gran % (36.0-66.0) % Eos # (Auto) (0-0.5) Absolute Lymphs (auto) (1.0-4.6) Absolute Monos (auto) (0.0-1.3) Lymphocytes % (24.0-44.0) % Monocytes % (0.0-12.0) % Eosinophils % (0.00-5.0) % Basophils % (0.0-0.4) % Absolute Granulocytes (1.4-6.9) Basophils # (0-0.4) Sodium (137-145) mmol/L Potassium (3.5-5.1) mmol/L Chloride (98-107) mmol/L Carbon Dioxide (22-30) mmol/L Anion Gap (5-15) MEQ/L BUN (7-17) mg/dL Creatinine (0.52-1.04) mg/dL Estimated GFR ML/MIN Glucose (74-106) mg/dL Lactic Acid (0.4-2.0) Calcium (8.4-10.2) mg/dL Magnesium (1.6-2.3) mg/dL Total Bilirubin (0.2-1.3) mg/dL AST (14-36) U/L ALT (0-35) U/L Alkaline Phosphatase (38-126) U/L Troponin I 0.078 H* 0.077 H* (0.000-0.034) ng/mL Serum Total Protein (6.3-8.2) g/dL Albumin (3.5-5.0) g/dL Prealbumin (17.6-36.0) mg/dL Influenza Type A Ag NEGATIVE (NEGATIVE) Influenza Type B Ag NEGATIVE (NEGATIVE) RSV (PCR) NEGATIVE (Negative) Slides for Path Review 05/17/17 05/17/17 05/17/17 Range/Units 00:25 00:25 02:40 WBC (4.0-10.5) K/mm3 RBC (4.1-5.4) M/mm3 Hgb (12.0-16.0) gm/dl Hct (35-47) % MCV (78-100) fl MCH (26-32) pg MCHC (32-36) g/dl RDW (11.5-14.0) % Plt Count (150-450) K/mm3 MPV (6-9.5) fl Gran % (36.0-66.0) % Eos # (Auto) (0-0.5) Absolute Lymphs (auto) (1.0-4.6) Absolute Monos (auto) (0.0-1.3) Lymphocytes % (24.0-44.0) % Monocytes % (0.0-12.0) % Eosinophils % (0.00-5.0) % Basophils % (0.0-0.4) % Absolute Granulocytes (1.4-6.9) Basophils # (0-0.4) Sodium 157 H* 154 H* (137-145) mmol/L Potassium 4.0 4.1 (3.5-5.1) mmol/L Chloride 118 H 117 H (98-107) mmol/L Carbon Dioxide 28 27 (22-30) mmol/L Anion Gap 14.9 15.1 H (5-15) MEQ/L BUN 31 H 29 H (7-17) mg/dL Creatinine 0.76 0.72 (0.52-1.04) mg/dL Estimated GFR > 60 > 60 ML/MIN Glucose 166 H 222 H (74-106) mg/dL Lactic Acid (0.4-2.0) Calcium 9.3 9.2 (8.4-10.2) mg/dL Magnesium 2.3 (1.6-2.3) mg/dL Total Bilirubin (0.2-1.3) mg/dL AST (14-36) U/L ALT (0-35) U/L Alkaline Phosphatase (38-126) U/L Troponin I (0.000-0.034) ng/mL Serum Total Protein (6.3-8.2) g/dL Albumin (3.5-5.0) g/dL Prealbumin (17.6-36.0) mg/dL Influenza Type A Ag (NEGATIVE) Influenza Type B Ag (NEGATIVE) RSV (PCR) (Negative) Slides for Path Review 05/17/17 05/17/17 05/17/17 Range/Units 05:32 05:32 05:32 WBC 21.1 H (4.0-10.5) K/mm3 RBC 4.54 (4.1-5.4) M/mm3 Hgb 13.5 (12.0-16.0) gm/dl Hct 44.6 (35-47) % MCV 98.2 (78-100) fl MCH 29.7 (26-32) pg MCHC 30.3 L (32-36) g/dl RDW 16.1 H (11.5-14.0) % Plt Count 265 (150-450) K/mm3 MPV 11.2 H (6-9.5) fl Gran % 72.6 H (36.0-66.0) % Eos # (Auto) 0.01 (0-0.5) Absolute Lymphs (auto) 4.07 (1.0-4.6) Absolute Monos (auto) 1.69 H (0.0-1.3) Lymphocytes % 19.3 L (24.0-44.0) % Monocytes % 8.0 (0.0-12.0) % Eosinophils % 0.0 (0.00-5.0) % Basophils % 0.1 (0.0-0.4) % Absolute Granulocytes 15.27 H (1.4-6.9) Basophils # 0.03 (0-0.4) Sodium 155 H* (137-145) mmol/L Potassium 3.9 (3.5-5.1) mmol/L Chloride 115 H (98-107) mmol/L Carbon Dioxide 28 (22-30) mmol/L Anion Gap 15.3 H (5-15) MEQ/L BUN 25 H (7-17) mg/dL Creatinine 0.75 (0.52-1.04) mg/dL Estimated GFR > 60 ML/MIN Glucose 263 H (74-106) mg/dL Lactic Acid (0.4-2.0) Calcium 8.9 (8.4-10.2) mg/dL Magnesium (1.6-2.3) mg/dL Total Bilirubin 0.20 (0.2-1.3) mg/dL AST 26 (14-36) U/L ALT 22 (0-35) U/L Alkaline Phosphatase 75 (38-126) U/L Troponin I (0.000-0.034) ng/mL Serum Total Protein 6.0 L (6.3-8.2) g/dL Albumin 3.2 L (3.5-5.0) g/dL Prealbumin 21.05 (17.6-36.0) mg/dL Influenza Type A Ag (NEGATIVE) Influenza Type B Ag (NEGATIVE) RSV (PCR) (Negative) Slides for Path Review YES 05/17/17 Range/Units 06:04 WBC (4.0-10.5) K/mm3 RBC (4.1-5.4) M/mm3 Hgb (12.0-16.0) gm/dl Hct (35-47) % MCV (78-100) fl MCH (26-32) pg MCHC (32-36) g/dl RDW (11.5-14.0) % Plt Count (150-450) K/mm3 MPV (6-9.5) fl Gran % (36.0-66.0) % Eos # (Auto) (0-0.5) Absolute Lymphs (auto) (1.0-4.6) Absolute Monos (auto) (0.0-1.3) Lymphocytes % (24.0-44.0) % Monocytes % (0.0-12.0) % Eosinophils % (0.00-5.0) % Basophils % (0.0-0.4) % Absolute Granulocytes (1.4-6.9) Basophils # (0-0.4) Sodium (137-145) mmol/L Potassium (3.5-5.1) mmol/L Chloride (98-107) mmol/L Carbon Dioxide (22-30) mmol/L Anion Gap (5-15) MEQ/L BUN (7-17) mg/dL Creatinine (0.52-1.04) mg/dL Estimated GFR ML/MIN Glucose (74-106) mg/dL Lactic Acid 2.1 H (0.4-2.0) Calcium (8.4-10.2) mg/dL Magnesium (1.6-2.3) mg/dL Total Bilirubin (0.2-1.3) mg/dL AST (14-36) U/L ALT (0-35) U/L Alkaline Phosphatase (38-126) U/L Troponin I (0.000-0.034) ng/mL Serum Total Protein (6.3-8.2) g/dL Albumin (3.5-5.0) g/dL Prealbumin (17.6-36.0) mg/dL Influenza Type A Ag (NEGATIVE) Influenza Type B Ag (NEGATIVE) RSV (PCR) (Negative) Slides for Path Review Assessment/Plan (1) Sepsis Current Visit: Yes Status: Acute Qualifiers: Sepsis type: sepsis due to unspecified organism Qualified Code(s): A41.9 - Sepsis, unspecified organism Assessment & Plan: On IV levaquin, vancomycin, and zosyn, day #2. Lactate has nearly normalized. (2) UTI (urinary tract infection) Current Visit: Yes Status: Acute Qualifiers: Urinary tract infection type: acute pyelonephritis Qualified Code(s): N10 - Acute pyelonephritis Code(s): N39.0 - URINARY TRACT INFECTION, SITE NOT SPECIFIED (3) Hypernatremia Current Visit: Yes Status: Acute Assessment & Plan: some improvement. Needs more fluids, but will need to diurese a little today as well due to lungs (sounds are crackly today). Code(s): E87.0 - HYPEROSMOLALITY AND HYPERNATREMIA (4) Uncontrolled type 2 DM with hyperosmolar nonketotic hyperglycemia Current Visit: Yes Status: Acute Assessment & Plan: BS between 200-300 as is the goal. Continue insulin drip until labs normalize then work toward home long acting insulin. Code(s): E11.00 - TYPE 2 DIAB W HYPROSM W/O NONKET HYPRGLY-HYPROS COM[facility] ([facility])
[2017-05-17] MEDS: KEPPRA 500 MG G-TUBE SCH ×2 (08:45→21:11)
[2017-05-17] MEDS: Zestril 20 MG G-TUBE SCH (08:45)
[2017-05-17] MEDS: LIORESAL 10 MG G-TUBE SCH ×4 (08:45→21:12)
[2017-05-17] MEDS: LEVOFLOXACIN 750MG/150ML D5W 750 MG/150 ML BAG IV SCH (08:46)
[2017-05-17] MEDS: HYDROCODONE-ACETAMIN 2.5-108/5 ML SOLUTION G-TUBE SCH ×4 (08:48→21:12)
[2017-05-17] MEDS: BABY ASPIRIN 81 MG CHEW G-TUBE SCH (08:49)
[2017-05-17] MEDS ORDERED: LISINOPRIL G-TUBE SCH (10:00)
[2017-05-17] MEDS ORDERED: OMEPRAZOLE 40 MG PEG SCH (10:00)
[2017-05-17] MEDS ORDERED: NON-FORMULARY ITEM (Pravastatin Sodium [Pravastatin Sodium] 20 MG) PEG SCH (10:00)
[2017-05-17] MEDS ORDERED: NON-FORMULARY ITEM (Aspirin [Aspirin] 81 MG) PEG SCH (10:00)
[2017-05-17] MEDS ORDERED: Norco 10/325 MG Tablet G-TUBE SCH (10:00)
[2017-05-17] MEDS ORDERED: FLUOXETINE HCL 60 MG PO SCH (10:00)
[2017-05-17 10:30] LABS: ANION GAP 15.6 MEQ/L (5-15); BLOOD UREA NITROGEN 20 mg/dL (7-17); CHLORIDE 113 mmol/L (98-107); Calcium 8.5 mg/dL (8.4-10.2); Carbon Dioxide 25 mmol/L (22-30); Creatinine 1 0.62 mg/dL (0.52-1.04); Glucose 326 mg/dL (74-106); Potassium 3.9 mmol/L (3.5-5.1)
[2017-05-17 10:41] LABS: SODIUM 150 mmol/L (137-145)
[2017-05-17] MEDS: Sodium Chloride 0.9% W/ 20 mEq KCl/LITER 1,000 ML IV SCH ×2 (11:03→16:33)
[2017-05-17 15:09] LABS: ANION GAP 11.9 MEQ/L (5-15); BLOOD UREA NITROGEN 18 mg/dL (7-17); CHLORIDE 112 mmol/L (98-107); Calcium 8.6 mg/dL (8.4-10.2); Carbon Dioxide 28 mmol/L (22-30); Creatinine 1 0.61 mg/dL (0.52-1.04); Glucose 277 mg/dL (74-106); Potassium 3.7 mmol/L (3.5-5.1); SODIUM 149 mmol/L (137-145)
[2017-05-17] MEDS: NOVOLIN R INSULIN (FOR DRIPS)** 100 UNITS in Sodium Chloride 0.9% 100 ML IVPB 100 ML IV PRN (15:30)
[2017-05-17] MEDS: NEURONTIN 300 MG G-TUBE SCH (16:35)
[2017-05-17] MEDS: ZOCOR 20MG G-TUBE SCH (16:35)
[2017-05-17] MEDS ORDERED: NovoLOG Insulin SQ ONE (22:30)
[2017-05-17] MEDS: TYLENOL SUSPENSION 160 MG/5 ML G-TUBE PRN (23:57)
[2017-05-18] MEDS: Sodium Chloride 0.9% W/ 20 mEq KCl/LITER 1,000 ML IV SCH ×5 (00:24→23:07)
[2017-05-18] MEDS: TYLENOL SUSPENSION 160 MG/5 ML G-TUBE PRN ×4 (04:46→23:36)
[2017-05-18 06:16] LABS: ANION GAP 11.7 MEQ/L (5-15); BLOOD UREA NITROGEN 12 mg/dL (7-17); CHLORIDE 107 mmol/L (98-107); Calcium 8.9 mg/dL (8.4-10.2); Carbon Dioxide 29 mmol/L (22-30); Creatinine 1 0.53 mg/dL (0.52-1.04); Glucose 276 mg/dL (74-106); Hemoglobin 12.9 gm/dl (12.0-16.0); Mean Cell Volume 97.2 fl (78-100); Mean Corpuscular Hemoglobin 29.9 pg (26-32); Mean Corpuscular Hgb Concent. 30.7 g/dl (32-36); Mean Platelet Volume 11.3 fl (6-9.5); Platelet Count 193 K/mm3 (150-450); Potassium 3.6 mmol/L (3.5-5.1); Red Blood Count 4.32 M/mm3 (4.1-5.4); Red Cell Distribution Width 15.5 % (11.5-14.0); SODIUM 144 mmol/L (137-145)
[2017-05-18] MEDS: Zosyn 3.375GM/100 Ml D5W 3.375 GM/100 ML IVPB IV SCH ×4 (06:16→23:07)
[2017-05-18 06:41] LABS: White Blood Count 26.6 K/mm3 (4.0-10.5)
--- NOTE | 2017-05-18 08:20 | PCM.NOTE ---
Date and Time: 05/18/17 0816 Subjective Assessment: Pt had fever to 101 at 0400. She resumed Gtube feeds, initially at half the normal rate. She did well so yesterday afternoon she started at the normal rate but had vomiting x 2 so was cut back to 1/2 the normal rate. This morning she had no complaints for me but after my exam she vomited again. Her BS have been in the 200s. - Review of Systems Constitutional: Fever Abdominal/Gastrointestinal: Vomiting Objective Exam General Appearance: no apparent distress, alert Neurologic Exam: cooperative, other (slurred speech) Skin Exam: normal color, warm, dry, No rash Respiratory Exam: normal breath sounds, lungs clear, rhonchi (scattered), No crackles/rales, No wheezing Cardiovascular Exam: regular rate/rhythm, normal heart sounds, No murmur Gastrointestinal/Abdomen Exam: soft, other (Gtube present; hypoactive bowel sounds), No tenderness, No distention, No mass, No guarding, No rebound Extremity Exam: No swelling OBJECTIVE DATA Vital Signs: Vital Signs - 24 hr Temp Pulse Resp BP Pulse Ox 05/18/17 07:00 102 H 20 183/72 95 05/18/17 06:00 104 H 22 193/85 92 L 05/18/17 05:00 101.3 F 99 H 95 H 174/69 22 L 05/18/17 04:00 96 H 20 168/74 94 L 05/18/17 03:00 96 H 20 160/64 93 L 05/18/17 02:00 96 H 20 166/67 94 L 05/18/17 01:00 100.4 F 95 H 20 159/63 94 L 05/18/17 00:01 93 H 05/18/17 00:00 100.9 F 93 H 22 140/55 96 05/17/17 22:59 93 H 18 156/64 93 L 05/17/17 22:00 90 22 169/83 96 05/17/17 21:00 95 H 20 169/71 98 05/17/17 20:50 97 05/17/17 20:00 99.0 F 90 18 132/85 95 05/17/17 18:44 89 19 143/63 95 05/17/17 17:48 90 20 143/52 94 L 05/17/17 17:00 91 H 22 162/61 90 L 05/17/17 16:00 99.4 F 88 29 H 185/67 94 L 05/17/17 15:00 91 H 19 151/67 95 05/17/17 13:55 86 24 149/64 95 05/17/17 13:00 84 23 134/52 93 L 05/17/17 12:00 99.6 F 89 26 H 132/63 93 L 05/17/17 10:58 83 25 H 147/69 93 L 05/17/17 10:00 86 26 H 142/61 93 L 05/17/17 09:00 108 H 29 H 156/70 91 L Oxygen-Last 24 hours O2 Percentage 3 Liters = 32% O2 Percentage 3 Liters = 32% O2 Percentage 3 Liters = 32% O2 Percentage 3 Liters = 32% O2 Percentage 3 Liters = 32% O2 Percentage 3 Liters = 32% O2 Percentage 3 Liters = 32% O2 Percentage 3 Liters = 32% O2 Percentage 3 Liters = 32% O2 Percentage 3 Liters = 32% O2 Percentage 3 Liters = 32% O2 Percentage 3 Liters = 32% O2 Percentage 3 Liters = 32% O2 Percentage 3 Liters = 32% O2 Percentage 3 Liters = 32% O2 Percentage 3 Liters = 32% O2 Percentage 3 Liters = 32% O2 Percentage 3 Liters = 32% O2 Percentage 3 Liters = 32% O2 Percentage 3 Liters = 32% O2 Percentage 3 Liters = 32% O2 Percentage 3 Liters = 32% O2 Percentage 3 Liters = 32% Pain Assessment - Last Documented Pain Intensity 0 Pain Scale Used 0-10 Pain Scale Intake and Output: Intake & Output 05/15/17 05/16/17 05/17/17 05/18/17 11:59 11:59 11:59 11:59 Intake Total 4635 5916 Output Total 1100 3150 Balance 9521 6176 Weight 70.4 kg 70.4 kg Lab Results: Accuchecks Date 05/18/17 Date 05/18/17 Date 05/18/17 Date 05/18/17 Date 05/18/17 Date 05/18/17 Date 05/18/17 Date 05/18/17 Date 05/17/17 Date 05/17/17 Date 05/17/17 Date 05/17/17 Date 05/17/17 Date 05/17/17 Date 05/17/17 Date 05/17/17 Date 05/17/17 Date 05/17/17 Date 05/17/17 Date 05/17/17 Date 05/17/17 Date 05/17/17 Date 05/17/17 Time 07:03 Time 05:58 Time 05:00 Time 03:56 Time 02:58 Time 01:50 Time 01:00 Time 00:05 Time 22:58 Time 21:55 Time 21:00 Time 19:55 Time 18:49 Time 17:56 Time 16:56 Time 14:20 Time 15:00 Time 14:00 Time 13:00 Time 12:00 Time 10:00 Time 10:00 Time 09:00 Accucheck Value: 243 Accucheck Value: 244 Accucheck Value: 241 Accucheck Value: 270 Accucheck Value: 287 Accucheck Value: 315 Accucheck Value: 304 Accucheck Value: 268 Accucheck Value: 234 Accucheck Value: 246 Accucheck Value: 213 Accucheck Value: 241 Accucheck Value: 214 Accucheck Value: 232 Accucheck Value: 218 Accucheck Value: 286 Accucheck Value: 266 Accucheck Value: 295 Accucheck Value: 288 Accucheck Value: 302 Accucheck Value: 329 Accucheck Value: 258 Lab Results-Last 24 Hours 05/17/17 05/17/17 05/18/17 Range/Units 09:55 14:20 05:55 WBC 26.6 H* (4.0-10.5) K/mm3 RBC 4.32 (4.1-5.4) M/mm3 Hgb 12.9 (12.0-16.0) gm/dl Hct 42.0 (35-47) % MCV 97.2 (78-100) fl MCH 29.9 (26-32) pg MCHC 30.7 L (32-36) g/dl RDW 15.5 H (11.5-14.0) % Plt Count 193 (150-450) K/mm3 MPV 11.3 H (6-9.5) fl Sodium 150 H 149 H (137-145) mmol/L Potassium 3.9 3.7 (3.5-5.1) mmol/L Chloride 113 H 112 H (98-107) mmol/L Carbon Dioxide 25 28 (22-30) mmol/L Anion Gap 15.6 H 11.9 (5-15) MEQ/L BUN 20 H 18 H (7-17) mg/dL Creatinine 0.62 0.61 (0.52-1.04) mg/dL Estimated GFR > 60 > 60 ML/MIN Glucose 326 H 277 H (74-106) mg/dL Calcium 8.5 8.6 (8.4-10.2) mg/dL 05/18/17 Range/Units 05:55 WBC (4.0-10.5) K/mm3 RBC (4.1-5.4) M/mm3 Hgb (12.0-16.0) gm/dl Hct (35-47) % MCV (78-100) fl MCH (26-32) pg MCHC (32-36) g/dl RDW (11.5-14.0) % Plt Count (150-450) K/mm3 MPV (6-9.5) fl Sodium 144 (137-145) mmol/L Potassium 3.6 (3.5-5.1) mmol/L Chloride 107 (98-107) mmol/L Carbon Dioxide 29 (22-30) mmol/L Anion Gap 11.7 (5-15) MEQ/L BUN 12 (7-17) mg/dL Creatinine 0.53 (0.52-1.04) mg/dL Estimated GFR > 60 ML/MIN Glucose 276 H (74-106) mg/dL Calcium 8.9 (8.4-10.2) mg/dL Radiology Exams: Radiology Procedures Category Date Time Status CHEST 1 VIEW (PORTABLE) Urgent Exams 05/18/17 08:15 Ordered Multi-Disciplinary Progress Notes: Multi-Disciplinary Progress Notes 05/17/17 09:19 Case Management Note by Zainab Cruz Talked with CARLOS ALBERTO JOSUE regarding needs at time of discharge. Patient reports residing at [facility] and pt plans to return there at discharge. Discharge questionaire reviewed with patient. Important message from Medicare signed. Patient verbalized understanding. Forms placed on chart. Will continue to follow for all Discharge needs. Initialized on 05/17/17 09:19 - END OF NOTE Assessment/Plan (1) Sepsis Current Visit: Yes Status: Acute Qualifiers: Sepsis type: sepsis due to unspecified organism Qualified Code(s): A41.9 - Sepsis, unspecified organism Assessment & Plan: On levaquin, vancomycin, and zosyn IV, day #3. She is improving overall but was still febrile last night with increased WBC count today since yesterday. Will check CXR. UA looked suspicious on admission but culture as yet is negative. (2) UTI (urinary tract infection) Current Visit: Yes Status: Acute Qualifiers: Urinary tract infection type: acute pyelonephritis Qualified Code(s): N10 - Acute pyelonephritis Code(s): N39.0 - URINARY TRACT INFECTION, SITE NOT SPECIFIED (3) Hypernatremia Current Visit: Yes Status: Resolved Code(s): E87.0 - HYPEROSMOLALITY AND HYPERNATREMIA (4) Uncontrolled type 2 DM with hyperosmolar nonketotic hyperglycemia Current Visit: Yes Status: Resolved Code(s): E11.00 - TYPE 2 DIAB W HYPROSM W/O NONKET HYPRGLY-HYPROS COMA ([facility]) (5) Diabetes mellitus Current Visit: Yes Status: Acute Qualifiers: Diabetes mellitus type: type 2 Diabetes mellitus custodial insulin use: with custodial use Diabetes mellitus complication status: with circulatory complication Diabetes mellitus complication detail: with peripheral angiopathy with gangrene Qualified Code(s): E11.52 - Type 2 diabetes mellitus with diabetic peripheral angiopathy with gangrene; Z79.4 - termite control technician (current) use of insulin; Z79.4 - termite control technician (current) use of insulin; Z79.4 - retirement ( current) use of insulin; Z79.4 - retirement (current) use of insulin Assessment & Plan: s/p remote amputation. Uncontrolled. WIll change accuchecks to q4h, restart 1/2 dose home insulin tonight. moderate dose sliding scale. Code(s): E11.9 - TYPE 2 DIABETES MELLITUS WITHOUT COMPLICATIONS
--- NOTE | 2017-05-18 09:08 | XRAY ---
Indication: Fever and vomiting. Comparison: Portable chest May 16, 2017. 2 views of the abdomen obtained using portable technique demonstrates nonspecific nonobstructed bowel gas pattern with PEG tube in situ and cholecystectomy clips.. Solid organs unremarkable. No large free air. Osseous structures intact with lower lumbar degenerative changes. AP portable chest demonstrates new right base discoid atelectasis. Remaining heart and lungs unremarkable. Bony thorax intact again with minimal degenerative changes. Impression: 1. Nonacute nonobstructed abdomen. 2. New right lung base discoid atelectasis in a otherwise nonacute chest.
[2017-05-18] MEDS ORDERED: NovoLOG Insulin SQ ONE (09:15)
[2017-05-18] MEDS: XARELTO 10 MG TABLET G-TUBE SCH (10:50)
[2017-05-18] MEDS: Lopressor 25MG Tab G-TUBE SCH ×2 (10:50→21:22)
[2017-05-18] MEDS: KEPPRA 500 MG G-TUBE SCH ×2 (10:50→21:22)
[2017-05-18] MEDS: BABY ASPIRIN 81 MG CHEW G-TUBE SCH (10:50)
[2017-05-18] MEDS: LIORESAL 10 MG G-TUBE SCH ×4 (10:50→21:23)
[2017-05-18] MEDS: Prozac 20 MG G-TUBE SCH (10:50)
[2017-05-18] MEDS: Zestril 20 MG G-TUBE SCH (10:50)
[2017-05-18] MEDS: LEVOFLOXACIN 750MG/150ML D5W 750 MG/150 ML BAG IV SCH (11:22)
[2017-05-18] MEDS: PROTONIX 40 MG IV IV SCH (11:22)
[2017-05-18] MEDS: HYDROCODONE-ACETAMIN 2.5-108/5 ML SOLUTION G-TUBE SCH ×4 (11:25→21:22)
[2017-05-18] MEDS: NovoLOG Insulin SQ PRN ×4 (12:57→23:36)
[2017-05-18] MEDS: NEURONTIN 300 MG G-TUBE SCH (18:17)
[2017-05-18] MEDS: ZOCOR 20MG G-TUBE SCH (18:17)
[2017-05-18] MEDS: Lantus Insulin SQ SCH ×2 (21:23→21:40)
[2017-05-19] MEDS: NovoLOG Insulin SQ PRN ×3 (04:11→16:56)
[2017-05-19] MEDS: TYLENOL SUSPENSION 160 MG/5 ML G-TUBE PRN ×2 (04:11→08:46)
[2017-05-19] MEDS: Zosyn 3.375GM/100 Ml D5W 3.375 GM/100 ML IVPB IV SCH ×3 (06:10→16:55)
[2017-05-19] MEDS: Sodium Chloride 0.9% W/ 20 mEq KCl/LITER 1,000 ML IV SCH ×3 (06:10→21:55)
[2017-05-19] MEDS ORDERED: PHARMACY DOSING REQUIRED: VANCOMYCIN MC ONE (07:45)
[2017-05-19 08:31] LABS: BASOPHIL % 0.1 % (0.0-0.4); Basophil (Absolute #) 0.03 (0-0.4); Eosinophil % 0.8 % (0.00-5.0); Eosinophil (Absolute #) 0.17 (0-0.5); Granulocyte Absolute (ANC) 17.68 (1.4-6.9); Granulocytes % 86.4 % (36.0-66.0); Hematocrit 36.4 % (35-47); Hemoglobin 11.3 gm/dl (12.0-16.0); Lymphocyte (Absolute #) 1.65 (1.0-4.6); Mean Cell Volume 96.8 fl (78-100); Mean Platelet Volume 11.1 fl (6-9.5); Monocyte (Absolute #) 0.97 (0.0-1.3); Monocytes % 4.7 % (0.0-12.0); Platelet Count 173 K/mm3 (150-450); Red Blood Count 3.76 M/mm3 (4.1-5.4); Red Cell Distribution Width 15.6 % (11.5-14.0); White Blood Count 20.5 K/mm3 (4.0-10.5)
--- NOTE | 2017-05-19 08:34 | PCM.NOTE ---
Date and Time: 05/19/17828 Subjective Assessment: She had a fever last night to 103.1. No complaints this morning. She is conversant but less so than yesterday. no complaints of pain. no vomiting since yesterday. Was on 1/2 amount of usual feed last night. Objective Exam General Appearance: no apparent distress, obese Neurologic Exam: alert, cooperative Skin Exam: normal color, warm, dry Eye Exam: eyes nml inspection Respiratory Exam: normal breath sounds, rhonchi (LLL), No crackles/rales, No wheezing Cardiovascular Exam: regular rate/rhythm, normal heart sounds, No murmur Extremity Exam: No pedal edema, No swelling OBJECTIVE DATA Vital Signs: Vital Signs - 24 hr Temp Pulse Resp BP Pulse Ox 05/19/17 07:00 90 24 132/46 100 05/19/17 06:00 100.4 F 94 H 27 H 105/48 99 05/19/17 05:00 102.4 F 100 H 24 137/53 100 05/19/17 04:00 103.1 F 97 H 24 130/48 98 05/19/17 03:00 96 H 25 H 125/46 97 05/19/17 02:20 90 23 119/46 96 05/19/17 01:00 88 21 117/45 91 L 05/19/17 00:26 18 90 L 05/19/17 00:01 89 05/18/17 23:57 100 F 89 20 100/51 90 L 05/18/17 23:30 90 L 05/18/17 22:55 87 19 104/52 92 L 05/18/17 22:00 87 22 128/49 94 L 05/18/17 21:00 88 22 124/47 100 05/18/17 20:00 98.4 F 86 22 122/61 99 05/18/17 18:59 83 19 106/54 99 05/18/17 18:00 84 19 107/51 98 05/18/17 17:00 84 20 117/58 98 05/18/17 16:00 99.9 F 81 20 121/57 97 05/18/17 15:00 85 22 119/45 96 05/18/17 14:00 87 23 128/49 96 05/18/17 13:00 87 20 141/49 95 05/18/17 12:00 100.4 F 86 25 H 150/61 96 05/18/17 11:00 102 H 26 H 172/67 94 L 05/18/17 10:00 104 H 25 H 180/71 96 05/18/17 09:00 99 H 27 H 184/69 96 05/18/17 08:56 97 Oxygen-Last 24 hours O2 Percentage 3 Liters = 32% O2 Percentage 3 Liters = 32% O2 Percentage 3 Liters = 32% O2 Percentage 5 Liters = 40% O2 Percentage 5 Liters = 40% O2 Percentage 5 Liters = 40% O2 Percentage 4 Liters = 36% O2 Percentage 4 Liters = 36% O2 Percentage 3 Liters = 32% O2 Percentage 2 Liters = 28% O2 Percentage 2 Liters = 28% O2 Percentage 2 Liters = 28% O2 Percentage 2 Liters = 28% O2 Percentage 2 Liters = 28% O2 Percentage 2 Liters = 28% O2 Percentage 2 Liters = 28% O2 Percentage 2 Liters = 28% O2 Percentage 2 Liters = 28% O2 Percentage 2 Liters = 28% O2 Percentage 2 Liters = 28% O2 Percentage 2 Liters = 28% O2 Percentage 2 Liters = 28% O2 Percentage 2 Liters = 28% O2 Percentage 2 Liters = 28% Pain Assessment - Last Documented Pain Intensity 0 Pain Scale Used 0-10 Pain Scale Intake and Output: Intake & Output 05/16/17 05/17/17 05/18/17 05/19/17 11:59 11:59 11:59 11:59 Intake Total 4635 6096 5493 Output Total 1100 4150 1200 Balance 3535 1946 4293 Weight 70.4 kg 70.4 kg 76 kg Lab Results: Accuchecks Date 05/19/17 Date 05/18/17 Date 05/18/17 Time 04:00 Time 23:30 Time 20:00 Accucheck Value: 292 Accucheck Value: 250 Accucheck Value: 279 Accucheck Value: 265 Accucheck Value: 252 Radiology Exams: Radiology Procedures Category Date Time Status OBSTR/ACUTE ABDOMEN SERIES Urgent Exams 05/18/17 08:41 Completed Assessment/Plan (1) Sepsis Current Visit: Yes Status: Acute Qualifiers: Sepsis type: sepsis due to unspecified organism Qualified Code(s): A41.9 - Sepsis, unspecified organism Assessment & Plan: Her WBC is pending this morning. Still febrile starting day #4 of levaquin and zosyn. UCx and Bld Cx are negative. Will change levaquin to vancomycin to cover for MRSA. No focal sx. Her Urine is still th [facility] suspicious nidus of infection clinically. (2) UTI (urinary tract infection) Current Visit: Yes Status: Acute Qualifiers: Urinary tract infection type: acute pyelonephritis Qualified Code(s): N10 - Acute pyelonephritis Code(s): N39.0 - URINARY TRACT INFECTION, SITE NOT SPECIFIED (3) Hypernatremia Current Visit: Yes Status: Resolved Code(s): E87.0 - HYPEROSMOLALITY AND HYPERNATREMIA (4) Diabetes mellitus Current Visit: Yes Status: Acute Qualifiers: Diabetes mellitus type: type 2 Diabetes mellitus watermelon harvesting supervisor insulin use: with watermelon harvesting supervisor use Diabetes mellitus complication status: with circulatory complication Diabetes mellitus complication detail: with peripheral angiopathy with gangrene Qualified Code(s): E11.52 - Type 2 diabetes mellitus with diabetic peripheral angiopathy with gangrene; Z79.4 - detention (current) use of insulin; Z79.4 - long term care administrator (current) use of insulin; Z79.4 - long term care administrator ( current) use of insulin; Z79.4 - detention (current) use of insulin Assessment & Plan: Resume home insulin dose. Code(s): E11.9 - TYPE 2 DIABETES MELLITUS WITHOUT COMPLICATIONS (5) nutrition Current Visit: Yes Status: Acute Assessment & Plan: Resume home meds.
[2017-05-19] MEDS: LIORESAL 10 MG G-TUBE SCH ×4 (08:46→22:07)
[2017-05-19] MEDS: Prozac 20 MG G-TUBE SCH (08:46)
[2017-05-19] MEDS: PROTONIX 40 MG IV IV SCH (08:46)
[2017-05-19] MEDS: XARELTO 10 MG TABLET G-TUBE SCH (08:46)
[2017-05-19] MEDS: BABY ASPIRIN 81 MG CHEW G-TUBE SCH (08:47)
[2017-05-19] MEDS: Lopressor 25MG Tab G-TUBE SCH ×2 (08:47→22:07)
[2017-05-19] MEDS: KEPPRA 500 MG G-TUBE SCH ×2 (08:47→22:07)
[2017-05-19] MEDS: VANCOCIN 1 GM VIAL*** 1.25 GM in Sodium Chloride 0.9% 250 ML 250 ML IV SCH ×2 (08:48→21:59)
[2017-05-19] MEDS: HYDROCODONE-ACETAMIN 2.5-108/5 ML SOLUTION G-TUBE SCH ×4 (08:53→22:07)
[2017-05-19] MEDS: Zestril 20 MG G-TUBE SCH (08:53)
--- NOTE | 2017-05-19 08:57 | XRAY ---
Indication: Nausea and vomiting. Comparison: One day earlier. Portable chest demonstrates new bibasilar infiltrates/atelectasis and tiny effusions. Upper lungs clear. Heart is not enlarged.
[2017-05-19] MEDS: Novolin N SQ SCH (09:58)
[2017-05-19 10:01] LABS: ALBUMIN 2.7 g/dL (3.5-5.0); ALKALINE PHOSPHATASE 79 U/L (38-126); BLOOD UREA NITROGEN 10 mg/dL (7-17); CHLORIDE 105 mmol/L (98-107); Calcium 8.4 mg/dL (8.4-10.2); Carbon Dioxide 28 mmol/L (22-30); Creatinine 1 0.56 mg/dL (0.52-1.04); Glucose 249 mg/dL (74-106); SGOT/AST 15 U/L (14-36); SGPT/ALT 15 U/L (0-35); SODIUM 140 mmol/L (137-145); Total Protein 5.4 g/dL (6.3-8.2)
[2017-05-19] MEDS: NEURONTIN 300 MG G-TUBE SCH (16:01)
[2017-05-19] MEDS: ZOCOR 20MG G-TUBE SCH (16:01)
[2017-05-19] MEDS: Lantus Insulin SQ SCH (22:07)
[2017-05-20] MEDS: Zosyn 3.375GM/100 Ml D5W 3.375 GM/100 ML IVPB IV SCH ×4 (01:19→18:13)
[2017-05-20] MEDS: TYLENOL SUSPENSION 160 MG/5 ML G-TUBE PRN ×2 (01:19→12:01)
[2017-05-20] MEDS: NovoLOG Insulin SQ PRN ×2 (05:25→07:51)
[2017-05-20] MEDS: Novolin N SQ SCH (07:51)
[2017-05-20] MEDS ORDERED: Novolin N SQ SCH (08:00)
--- NOTE | 2017-05-20 08:27 | PCM.NOTE ---
Date and Time: 05/20/17821 Subjective Assessment: pt states she feels better. Has told nurse all she wants out of life is a Coke. Denies pain. Last fever 101 just over 24h ago. Tmax overnight 100.3. - Review of Systems Constitutional: No Fever Respiratory: No Cough Objective Exam General Appearance: no apparent distress, alert Neurologic Exam: cooperative, other (L arm hemiparesis as usual) Skin Exam: normal color, warm, dry, No rash Ears, Nose, Throat Exam: moist mucous membranes Neck Exam: normal inspection Respiratory Exam: normal breath sounds, lungs clear, No crackles/rales, No rhonchi, No wheezing Cardiovascular Exam: regular rate/rhythm, normal heart sounds, No murmur Gastrointestinal/Abdomen Exam: soft, normal bowel sounds, other (G tube present no erythema or exudate), No tenderness, No distention, No mass Extremity Exam: normal inspection, No pedal edema, No swelling OBJECTIVE DATA Vital Signs: Vital Signs - 24 hr Temp Pulse Resp BP BP Pulse Ox 05/20/17 07:30 99.7 F 84 18 131/60 98 05/20/17 05:00 97.8 F 76 16 129/57 98 05/20/17 00:42 100.3 F 81 16 129/60 96 05/19/17 20:50 97.8 F 76 16 114/51 92 L 05/19/17 20:00 97.8 F 76 16 114/51 92 L 05/19/17 16:52 97.9 F 73 18 127/57 97 05/19/17 12:00 98.9 F 82 23 125/50 96 05/19/17 09:28 20 95 05/19/17 09:26 20 88 L Oxygen-Last 24 hours O2 Percentage 3 Liters = 32% O2 Percentage 2 Liters = 28% O2 Percentage 3 Liters = 32% O2 Percentage 3 Liters = 32% O2 Percentage 3 Liters = 32% O2 Percentage 3 Liters = 32% O2 Percentage 3 Liters = 32% O2 Percentage 2 Liters = 28% O2 Percentage 2 Liters = 28% Pain Assessment - Last Documented Pain Intensity 0 Pain Scale Used 0-10 Pain Scale Intake and Output: Intake & Output 05/17/17 05/18/17 05/19/17 05/20/17 11:59 11:59 11:59 11:59 Intake Total 4677 6058 5833 5427 Output Total 9250 0097 6786 1379 Balance 0950 6080 2217 7277 Weight 70.4 kg 70.4 kg 76 kg 81.9 kg Lab Results: Accuchecks Date 05/20/17 Date 05/19/17 Date 05/19/17 Date 05/19/17 Date 05/19/17 Time 04:00 Time 23:45 Time 20:00 Time 16:00 Time 02:36 Accucheck Value: 280 Accucheck Value: 279 Accucheck Value: 282 Accucheck Value: 216 Accucheck Value: 199 Lab Results-Last 24 Hours 05/19/17 05/19/17 Range/Units 08:20 08:20 WBC 20.5 H (4.0-10.5) K/mm3 RBC 3.76 L (4.1-5.4) M/mm3 Hgb 11.3 L (12.0-16.0) gm/dl Hct 36.4 (35-47) % MCV 96.8 (78-100) fl MCH 30.0 (26-32) pg MCHC 31.0 L (32-36) g/dl RDW 15.6 H (11.5-14.0) % Plt Count 173 (150-450) K/mm3 MPV 11.1 H (6-9.5) fl Gran % 86.4 H (36.0-66.0) % Eos # (Auto) 0.17 (0-0.5) Absolute Lymphs (auto) 1.65 (1.0-4.6) Absolute Monos (auto) 0.97 (0.0-1.3) Lymphocytes % 8.0 L (24.0-44.0) % Monocytes % 4.7 (0.0-12.0) % Eosinophils % 0.8 (0.00-5.0) % Basophils % 0.1 (0.0-0.4) % Absolute Granulocytes 17.68 H (1.4-6.9) Basophils # 0.03 (0-0.4) Sodium 140 (137-145) mmol/L Potassium 4.0 (3.5-5.1) mmol/L Chloride 105 (98-107) mmol/L Carbon Dioxide 28 (22-30) mmol/L Anion Gap 11.0 (5-15) MEQ/L BUN 10 (7-17) mg/dL Creatinine 0.56 (0.52-1.04) mg/dL Estimated GFR > 60 ML/MIN Glucose 249 H (74-106) mg/dL Calcium 8.4 (8.4-10.2) mg/dL Total Bilirubin 0.20 (0.2-1.3) mg/dL AST 15 (14-36) U/L ALT 15 (0-35) U/L Alkaline Phosphatase 79 (38-126) U/L Serum Total Protein 5.4 L (6.3-8.2) g/dL Albumin 2.7 L (3.5-5.0) g/dL Radiology Exams: Radiology Procedures Category Date Time Status CHEST 1 VIEW (PORTABLE) Routine Exams 05/19/17 08:30 Completed OBSTR/ACUTE ABDOMEN SERIES Urgent Exams 05/18/17 08:41 Completed Multi-Disciplinary Progress Notes: Multi-Disciplinary Progress Notes 05/19/17 15:45 Nutrition Note by Caitie Almanzar F/u Note: Note TF Isosource 1.5 con't @ 40cc/hour. Feeding had been turned up to 80cc/ hour pt then had vomiting and fever; rate turned down to 40cc/hour. Pt doing better at this time- no more vomiting. Labs 05/19 = glu 249, alb 2.7, hgb 11.3, +fluid balance 1083 mls. Recommend to con't with feeding; gradually increase to goal rate. goals met and ongoing. Will monitor and f/u prn. TFAUSTINA Miller Initialized on 05/19/17 15:45 - END OF NOTE Assessment/Plan (1) Sepsis Current Visit: Yes Status: Acute Qualifiers: Sepsis type: sepsis due to unspecified organism Qualified Code(s): A41.9 - Sepsis, unspecified organism Assessment & Plan: Improving, afebrile x 24h with Tmax 100.3 last night. On Vancomycin day #2 and Zosyn day #5. (2) UTI (urinary tract infection) Current Visit: Yes Status: Acute Qualifiers: Urinary tract infection type: acute pyelonephritis Qualified Code(s): N10 - Acute pyelonephritis Code(s): N39.0 - URINARY TRACT INFECTION, SITE NOT SPECIFIED (3) Hypernatremia Current Visit: Yes Status: Resolved Code(s): E87.0 - HYPEROSMOLALITY AND HYPERNATREMIA (4) Diabetes mellitus Current Visit: Yes Status: Chronic Qualifiers: Diabetes mellitus type: type 2 Diabetes mellitus extermination inspector insulin use: with penitentiary use Diabetes mellitus complication status: with circulatory complication Diabetes mellitus complication detail: with peripheral angiopathy with gangrene Qualified Code(s): E11.52 - Type 2 diabetes mellitus with diabetic peripheral angiopathy with gangrene; Z79.4 - lobsterman (current) use of insulin; Z79.4 - lobsterman (current) use of insulin; Z79.4 - lobsterman ( current) use of insulin; Z79.4 - lobsterman (current) use of insulin Assessment & Plan: Expect BS to improve today as she's now back on her home dose of insulin. Code(s): E11.9 - TYPE 2 DIABETES MELLITUS WITHOUT COMPLICATIONS (5) nutrition Current Visit: Yes Status: Acute Assessment & Plan: back to regular feeds.
[2017-05-20] MEDS: Sodium Chloride 0.9% W/ 20 mEq KCl/LITER 1,000 ML IV SCH ×2 (08:30→19:39)
[2017-05-20 09:47] LABS: BASOPHIL % 0.2 % (0.0-0.4); Basophil (Absolute #) 0.04 (0-0.4); Eosinophil % 2.5 % (0.00-5.0); Eosinophil (Absolute #) 0.44 (0-0.5); Granulocyte Absolute (ANC) 15.07 (1.4-6.9); Granulocytes % 86.5 % (36.0-66.0); Hematocrit 34.5 % (35-47); Hemoglobin 10.7 gm/dl (12.0-16.0); Lymphocyte (Absolute #) 1.12 (1.0-4.6); Lymphocytes % 6.4 % (24.0-44.0); Mean Cell Volume 96.4 fl (78-100); Mean Platelet Volume 11.6 fl (6-9.5); Monocyte (Absolute #) 0.77 (0.0-1.3); Monocytes % 4.4 % (0.0-12.0); Platelet Count 177 K/mm3 (150-450); Red Blood Count 3.58 M/mm3 (4.1-5.4); Red Cell Distribution Width 15.6 % (11.5-14.0); White Blood Count 17.4 K/mm3 (4.0-10.5)
[2017-05-20 09:52] LABS: Mean Corpuscular Hemoglobin 29.8 pg (26-32)
[2017-05-20 09:58] LABS: ALBUMIN 2.7 g/dL (3.5-5.0); ALKALINE PHOSPHATASE 85 U/L (38-126); ANION GAP 10.7 MEQ/L (5-15); BLOOD UREA NITROGEN 9 mg/dL (7-17); CHLORIDE 106 mmol/L (98-107); Calcium 8.6 mg/dL (8.4-10.2); Carbon Dioxide 29 mmol/L (22-30); Creatinine 1 0.55 mg/dL (0.52-1.04); Glucose 170 mg/dL (74-106); SGOT/AST 9 U/L (14-36); SGPT/ALT 12 U/L (0-35); SODIUM 141 mmol/L (137-145); Total Protein 5.4 g/dL (6.3-8.2)
[2017-05-20] MEDS: VANCOCIN 1 GM VIAL*** 1.25 GM in Sodium Chloride 0.9% 250 ML 250 ML IV SCH ×2 (10:37→22:02)
[2017-05-20] MEDS: Duragesic 25MCG Patch TD SCH (10:38)
[2017-05-20] MEDS: HYDROCODONE-ACETAMIN 2.5-108/5 ML SOLUTION G-TUBE SCH ×4 (10:38→22:06)
[2017-05-20] MEDS: Prozac 20 MG G-TUBE SCH (10:39)
[2017-05-20] MEDS: BABY ASPIRIN 81 MG CHEW G-TUBE SCH (10:39)
[2017-05-20] MEDS: XARELTO 10 MG TABLET G-TUBE SCH (10:39)
[2017-05-20] MEDS: KEPPRA 500 MG G-TUBE SCH ×2 (10:39→22:06)
[2017-05-20] MEDS: Zestril 20 MG G-TUBE SCH (10:39)
[2017-05-20] MEDS: Lopressor 25MG Tab G-TUBE SCH ×2 (10:39→22:07)
[2017-05-20] MEDS: LIORESAL 10 MG G-TUBE SCH ×4 (10:39→22:07)
[2017-05-20] MEDS: PROTONIX 40 MG IV IV SCH (10:40)
[2017-05-20] MEDS ORDERED: D50W 50 ml Abboject IV PRN (16:17)
[2017-05-20] MEDS: NEURONTIN 300 MG G-TUBE SCH (18:13)
[2017-05-20] MEDS: ZOCOR 20MG G-TUBE SCH (18:13)
[2017-05-20] MEDS: Lantus Insulin SQ SCH (22:31)
[2017-05-21] MEDS: Zosyn 3.375GM/100 Ml D5W 3.375 GM/100 ML IVPB IV SCH ×3 (00:50→12:32)
[2017-05-21] MEDS: NovoLOG Insulin SQ PRN ×4 (00:51→23:35)
[2017-05-21] MEDS: Sodium Chloride 0.9% W/ 20 mEq KCl/LITER 1,000 ML IV SCH ×2 (05:09→17:46)
[2017-05-21 07:12] LABS: ALBUMIN 2.7 g/dL (3.5-5.0); ALKALINE PHOSPHATASE 105 U/L (38-126); ANION GAP 9.9 MEQ/L (5-15); BILIRUBIN,TOTAL < 0.10 mg/dL (0.2-1.3); BLOOD UREA NITROGEN 10 mg/dL (7-17); CHLORIDE 106 mmol/L (98-107); Calcium 8.8 mg/dL (8.4-10.2); Carbon Dioxide 31 mmol/L (22-30); Creatinine 1 0.56 mg/dL (0.52-1.04); Glucose 302 mg/dL (74-106); Potassium 4.1 mmol/L (3.5-5.1); SGOT/AST 12 U/L (14-36); SGPT/ALT 12 U/L (0-35); SODIUM 143 mmol/L (137-145); Total Protein 5.4 g/dL (6.3-8.2)
[2017-05-21 07:27] LABS: BASOPHIL % 0.2 % (0.0-0.4); Basophil (Absolute #) 0.03 (0-0.4); Eosinophil % 3.7 % (0.00-5.0); Eosinophil (Absolute #) 0.48 (0-0.5); Granulocyte Absolute (ANC) 10.72 (1.4-6.9); Granulocytes % 82.5 % (36.0-66.0); Hemoglobin 10.9 gm/dl (12.0-16.0); Lymphocyte (Absolute #) 0.98 (1.0-4.6); Lymphocytes % 7.5 % (24.0-44.0); Mean Cell Volume 97.2 fl (78-100); Mean Corpuscular Hgb Concent. 31.1 g/dl (32-36); Mean Platelet Volume 12.5 fl (6-9.5); Monocytes % 6.1 % (0.0-12.0); Platelet Count 211 K/mm3 (150-450); Red Cell Distribution Width 15.6 % (11.5-14.0)
[2017-05-21] MEDS: Novolin N SQ SCH (07:53)
[2017-05-21 08:03] LABS: Mean Corpuscular Hemoglobin 30.2 pg (26-32)
[2017-05-21] MEDS ORDERED: TROUGH DRUG LEVELS IJ ONE (09:30)
[2017-05-21] MEDS: Lopressor 25MG Tab G-TUBE SCH ×2 (10:09→21:24)
[2017-05-21] MEDS: KEPPRA 500 MG G-TUBE SCH ×2 (10:09→21:24)
[2017-05-21] MEDS: HYDROCODONE-ACETAMIN 2.5-108/5 ML SOLUTION G-TUBE SCH ×4 (10:09→21:28)
[2017-05-21] MEDS: Zestril 20 MG G-TUBE SCH (10:09)
[2017-05-21] MEDS: Prozac 20 MG G-TUBE SCH (10:09)
[2017-05-21] MEDS: LIORESAL 10 MG G-TUBE SCH ×4 (10:09→21:24)
[2017-05-21] MEDS: PROTONIX 40 MG IV IV SCH (10:09)
[2017-05-21] MEDS: BABY ASPIRIN 81 MG CHEW G-TUBE SCH (10:10)
[2017-05-21] MEDS: XARELTO 10 MG TABLET G-TUBE SCH (10:10)
[2017-05-21] MEDS: VANCOCIN 1 GM VIAL*** 1.25 GM in Sodium Chloride 0.9% 250 ML 250 ML IV SCH ×2 (10:23→21:44)
--- NOTE | 2017-05-21 12:58 | PCM.NOTE ---
Date and Time: 05/21/17 1253 Subjective Assessment: Pt's BS went to 50 yesterday afternoon and she was given 1 amp D50 with good results. Lantus was then held last night as her BS was under 150. The RN spoke to staff at [facility] and apparently pt's BS are usually quite well regulated. Her tube feeds are at baseline. - Review of Systems Constitutional: No Fever Respiratory: No Cough Objective Exam General Appearance: no apparent distress, alert Neurologic Exam: cooperative Skin Exam: normal color, warm, dry, No rash Respiratory Exam: normal breath sounds, lungs clear, No crackles/rales, No rhonchi, No wheezing Cardiovascular Exam: regular rate/rhythm, normal heart sounds, No murmur Gastrointestinal/Abdomen Exam: soft, normal bowel sounds, other (Gtube present) , No tenderness, No distention, No guarding, No rebound Extremity Exam: No pedal edema, No swelling OBJECTIVE DATA Vital Signs: Vital Signs - 24 hr Temp Pulse Resp BP BP Pulse Ox 05/21/17 11:54 98.4 F 76 18 158/71 97 05/21/17 07:42 98.1 F 72 18 147/65 98 05/21/17 04:00 98.0 F 76 18 154/68 97 05/21/17 00:05 98.8 F 80 16 141/63 98 05/20/17 20:20 97.5 F 70 16 142/62 99 05/20/17 17:00 98.5 F 78 18 169/74 97 Oxygen-Last 24 hours O2 Percentage 2 Liters = 28% O2 Percentage 2 Liters = 28% O2 Percentage 2 Liters = 28% O2 Percentage 3 Liters = 32% Pain Assessment - Last Documented Pain Intensity 0 Pain Scale Used 0-10 Pain Scale Intake and Output: Intake & Output 05/19/17 05/20/17 05/21/17 05/22/17 11:59 11:59 11:59 11:59 Intake Total 5833 5427 5637 Output Total 3127 1375 9590 Balance 4614 7364 -533 Weight 76 kg 81.9 kg 82 kg Lab Results: Accuchecks Date 05/21/17 Date 05/21/17 Date 05/20/17 Time 05:00 Time 00:00 Accucheck Value: 140 Accucheck Value: 280 Accucheck Value: 258 Accucheck Value: 200 Accucheck Value: 125 Accucheck Value: 95 Accucheck Value: 50 Lab Results-Last 24 Hours 05/21/17 05/21/17 05/21/17 Range/Units 06:00 06:15 09:30 WBC 13.0 H (4.0-10.5) K/mm3 RBC 3.60 L (4.1-5.4) M/mm3 Hgb 10.9 L (12.0-16.0) gm/dl Hct 35.0 (35-47) % MCV 97.2 (78-100) fl MCH 30.2 (26-32) pg MCHC 31.1 L (32-36) g/dl RDW 15.6 H (11.5-14.0) % Plt Count 211 (150-450) K/mm3 MPV 12.5 H (6-9.5) fl Gran % 82.5 H (36.0-66.0) % Eos # (Auto) 0.48 (0-0.5) Absolute Lymphs (auto) 0.98 L (1.0-4.6) Absolute Monos (auto) 0.80 (0.0-1.3) Lymphocytes % 7.5 L (24.0-44.0) % Monocytes % 6.1 (0.0-12.0) % Eosinophils % 3.7 (0.00-5.0) % Basophils % 0.2 (0.0-0.4) % Absolute Granulocytes 10.72 H (1.4-6.9) Basophils # 0.03 (0-0.4) Sodium 143 (137-145) mmol/L Potassium 4.1 (3.5-5.1) mmol/L Chloride 106 (98-107) mmol/L Carbon Dioxide 31 H (22-30) mmol/L Anion Gap 9.9 (5-15) MEQ/L BUN 10 (7-17) mg/dL Creatinine 0.56 (0.52-1.04) mg/dL Estimated GFR > 60 ML/MIN Glucose 302 H (74-106) mg/dL Calcium 8.8 (8.4-10.2) mg/dL Total Bilirubin < 0.10 L (0.2-1.3) mg/dL AST 12 L (14-36) U/L ALT 12 (0-35) U/L Alkaline Phosphatase 105 (38-126) U/L Serum Total Protein 5.4 L (6.3-8.2) g/dL Albumin 2.7 L (3.5-5.0) g/dL Vancomycin Trough 15.58 H (5-10) ug/mL Assessment/Plan (1) Sepsis Current Visit: Yes Status: Acute Onset Date: ~05/16/17 Qualifiers: Sepsis type: sepsis due to unspecified organism Qualified Code(s): A41.9 - Sepsis, unspecified organism Assessment & Plan: Doing much better. On Vancomycin day #3 and zosyn day #6. will change zosyn to augmentin liquid per G tube. Continue vancomycin until tomorrow. If continues doing so well may d/c to [facility] tomorrow or the next day on Gtube augmentin. (2) UTI (urinary tract infection) Current Visit: Yes Status: Acute Onset Date: ~05/16/17 Qualifiers: Urinary tract infection type: acute pyelonephritis Qualified Code(s): N10 - Acute pyelonephritis Assessment & Plan: UCx was negative but clinically wiht the sepsis and absence of other sx I would say this has to have been the source of infection. Code(s): N39.0 - URINARY TRACT INFECTION, SITE NOT SPECIFIED (3) Diabetes mellitus Current Visit: Yes Status: Chronic Qualifiers: Diabetes mellitus type: type 2 Diabetes mellitus fpc insulin use: with fpc use Diabetes mellitus complication status: with circulatory complication Diabetes mellitus complication detail: with peripheral angiopathy with gangrene Qualified Code(s): E11.52 - Type 2 diabetes mellitus with diabetic peripheral angiopathy with gangrene; Z79.4 - assisted (current) use of insulin; Z79.4 - intermodal truck driver (current) use of insulin; Z79.4 - assisted ( current) use of insulin; Z79.4 - intermodal truck driver (current) use of insulin Assessment & Plan: changed her sliding scale to low dose and would try to give full lantus dose this afternoon. Code(s): E11.9 - TYPE 2 DIABETES MELLITUS WITHOUT COMPLICATIONS (4) nutrition Current Visit: Yes Status: Acute
[2017-05-21] MEDS: ZOCOR 20MG G-TUBE SCH (17:45)
[2017-05-21] MEDS: NEURONTIN 300 MG G-TUBE SCH (17:45)
[2017-05-21] MEDS: Augmentin 400 MG/5 ML G-TUBE SCH (21:24)
[2017-05-21] MEDS: Lantus Insulin SQ SCH (21:52)
[2017-05-22] MEDS: Sodium Chloride 0.9% W/ 20 mEq KCl/LITER 1,000 ML IV SCH (03:51)
[2017-05-22] MEDS: NovoLOG Insulin SQ PRN ×2 (04:13→07:59)
[2017-05-22 04:34] VITALS: O2SAT 97
[2017-05-22 07:02] VITALS: BP 132/68; PULSE 78
[2017-05-22] MEDS: Novolin N SQ SCH (08:00)
[2017-05-22 09:01] LABS: BASOPHIL % 0.2 % (0.0-0.4); Basophil (Absolute #) 0.02 (0-0.4); Eosinophil % 3.2 % (0.00-5.0); Granulocyte Absolute (ANC) 10.35 (1.4-6.9); Granulocytes % 82.9 % (36.0-66.0); Hematocrit 37.4 % (35-47); Hemoglobin 11.7 gm/dl (12.0-16.0); Lymphocyte (Absolute #) 0.86 (1.0-4.6); Lymphocytes % 6.9 % (24.0-44.0); Mean Cell Volume 94.7 fl (78-100); Mean Corpuscular Hemoglobin 29.6 pg (26-32); Mean Corpuscular Hgb Concent. 31.3 g/dl (32-36); Mean Platelet Volume 11.8 fl (6-9.5); Monocyte (Absolute #) 0.85 (0.0-1.3); Monocytes % 6.8 % (0.0-12.0); Platelet Count 257 K/mm3 (150-450); Red Blood Count 3.95 M/mm3 (4.1-5.4); Red Cell Distribution Width 15.3 % (11.5-14.0); White Blood Count 12.5 K/mm3 (4.0-10.5)
[2017-05-22 09:19] LABS: ANION GAP 12.7 MEQ/L (5-15); BLOOD UREA NITROGEN 12 mg/dL (7-17); CHLORIDE 103 mmol/L (98-107); Calcium 9.6 mg/dL (8.4-10.2); Carbon Dioxide 33 mmol/L (22-30); Creatinine 1 0.48 mg/dL (0.52-1.04); Glucose 247 mg/dL (74-106); Potassium 3.9 mmol/L (3.5-5.1); SODIUM 145 mmol/L (137-145)
--- NOTE | 2017-05-22 09:29 | PCM.DS ---
Discharge Summary Date of Admission: 05/16/17 13:54 Admitting Physician: FIDEL WHITE Primary Care Provider: CARLTON Allergies Allergies No Known Drug Allergies Allergy (Verified 05/16/17 15:18) Hospital Summary - Hospital Course Hospital Course: Pt admitted from [facility] with sepsis and hyperosmotic nonketotic hyperglycemia. Her BS was > 700 and WBC were >27,000. She took several days to become afebrile ; she started out with one dose of vancomycin in ER, then was on zosyn and Levaquin for 3days. Levaquin was changed to vancomycin when her WBC increased and she continued to be febrile. She recovered steadily after the change in antibiotics. Her sodium was initially quite elevated but came down over 36-48h with IV fluids. Her tube feeds were held for 2 days then re-started at 1/2 strength for about 2 days. She did have some vomiting initially but that resolved. This morning she had one episode of vomiting, does c/o nausea. Her blood sugars have continued to be elevated - 3d ago I restarted her home insulin dose, but 2d ago she had a BS of 50 so that night her lantus was held. I ordered a low dose (instead of moderate dose) sliding scale yesterday in an effort to be able to give the entire lantus dose, but it was held again last night (due to the BS of 50 the day before) so her BS continue to be high today. - Vitals & Intake/Output Vital Signs: Vital Signs Temperature 98 F 05/22/17 07:01 Pulse Rate 78 05/22/17 07:01 Respiratory Rate 20 05/22/17 07:01 Blood Pressure 132/68 05/22/17 07:01 O2 Sat by Pulse Oximetry 97 05/22/17 07:01 Oxygen-Last Documented O2 Percentage 2 Liters = 28% Intake & Output: Intake & Output 05/19/17 05/20/17 05/21/17 05/22/17 11:59 11:59 11:59 11:59 Intake Total 5833 5491 5641 5797 Output Total 2470 1268 0831 5704 Balance 7942 1306 -238 -8380 Weight 76 kg 81.9 kg 82 kg 77.3 kg - Lab Result Diagrams: 05/22/17 08:42 05/21/17 06:00 Lab Results-Last 24 Hrs: Accuchecks Date 05/22/17 Date 05/22/17 Date 05/21/17 Date 05/21/17 Time 08:15 Accucheck Value: 307 Accucheck Value: 285 Accucheck Value: 22 Accucheck Value: 137 Accucheck Value: 78 Accucheck Value: 140 Lab Results-Last 24 Hours 05/21/17 05/22/17 Range/Units 09:30 08:42 WBC 12.5 H (4.0-10.5) K/mm3 RBC 3.95 L (4.1-5.4) M/mm3 Hgb 11.7 L (12.0-16.0) gm/dl Hct 37.4 (35-47) % MCV 94.7 (78-100) fl MCH 29.6 (26-32) pg MCHC 31.3 L (32-36) g/dl RDW 15.3 H (11.5-14.0) % Plt Count 257 (150-450) K/mm3 MPV 11.8 H (6-9.5) fl Gran % 82.9 H (36.0-66.0) % Eos # (Auto) 0.40 (0-0.5) Absolute Lymphs (auto) 0.86 L (1.0-4.6) Absolute Monos (auto) 0.85 (0.0-1.3) Lymphocytes % 6.9 L (24.0-44.0) % Monocytes % 6.8 (0.0-12.0) % Eosinophils % 3.2 (0.00-5.0) % Basophils % 0.2 (0.0-0.4) % Absolute Granulocytes 10.35 H (1.4-6.9) Basophils # 0.02 (0-0.4) Vancomycin Trough 15.58 H (5-10) ug/mL Micro Results-Entire Visit: Accuchecks Date 05/22/17 Date 05/22/17 Date 05/21/17 Date 05/21/17 Time 08:15 Accucheck Value: 307 Accucheck Value: 285 Accucheck Value: 22 Accucheck Value: 137 Accucheck Value: 78 Accucheck Value: 140 - Procedures and Test Procedures and Tests throughout Hospitalization: Therapy Orders & Screens 05/16/17 16:00 OT Screen per Nursing Assess ONCE Comment: Protocol Order Physician Instructions: Greater than 3 points order OT Admission Screening Reason For Exam: Triggered on Admission Diagnosis: Sepsis, DKA, hypernatremia Open Wound/Cellutlitis/Pressure Ulcers: Yes Acute Fx/ORIF/Change in wt bearing status: No Severe MUSCULOSKELETAL pain: No ADL Dysfunction: Yes Acute CVA w/Hemiparesis/Hemiplegia: Yes Decreased Functional Mobility/Strength: Yes Sprain/Strain: No Acute Post-op Mobility Dysfunction: No Total Points: 14 PT Screen per Nursing Assess ONCE Comment: Protocol Order Physician Instructions: Greater than 3 points order PT Admission Screenin Reason For Exam: Triggered on Admission Diagnosis: Sepsis, DKA, hypernatremia Open Wound/Cellutlitis/Pressure Ulcers: Yes Acute Fx/ORIF/Change in wt bearing status: No Severe MUSCULOSKELETAL pain: No ADL Dysfunction: Yes Acute CVA w/Hemiparesis/Hemiplegia: Yes Decreased Functional Mobility/Strength: Yes Sprain/Strain: No Acute Post-op Mobility Dysfunction: No Total Points: 14 ST Screen per Nursing Assess once Comment: Protocol Order Physician Instructions: Greater than [address] Admission Screening Reason For Exam: Triggered on Admission Diagnosis: Sepsis, DKA, hypernatremia CVA/Dyshpagia/Aphasia: Yes Cognitive Deficits: No Dehydration/Nutrition Deficit: Yes Reflux: No Oral-Motor Difficulties: No Pneumonia: No Prison Resident: Yes Total Points: 15 05/17/17 20:50 Oxygen NASAL CANNULA 3 lpm Comment: Diagnosis: DKA Discharge Exam General Appearance: no apparent distress, alert Neurologic Exam: cooperative, other (answers questions well) Skin Exam: normal color, warm, dry, No rash Eye Exam: eyes nml inspection Respiratory Exam: normal breath sounds, lungs clear, No crackles/rales, No rhonchi, No wheezing Cardiovascular Exam: regular rate/rhythm, normal heart sounds, No murmur Extremity Exam: other (s/p remote RUE amputation), No pedal edema, No swelling Final Diagnosis/Problem List - Final Discharge Diagnosis/Problem (1) Sepsis Current Visit: Yes Status: Acute Onset Date: ~05/16/17 Assessment & Plan: Resolved. Day #4 vancomycin and Day #2 augmentin (previously on zosyn x 6d and levaquin x 3d). Home today on po augmentin. (2) UTI (urinary tract infection) Current Visit: Yes Status: Acute Onset Date: ~05/16/17 Assessment & Plan: Urine culture was negative but pt was definitely septic on admission and the UA was very suspicious for urine infection so clinically that's the most likely source. (3) Diabetes mellitus Current Visit: Yes Status: Chronic Assessment & Plan: BS uncontrolled here; pt to return to [facility] today where BS have been well controlled. (4) nutrition Current Visit: Yes Status: Acute Assessment & Plan: On baseline G-tube feeds. (5) Vomiting Current Visit: Yes Status: Chronic Assessment & Plan: Vomited x 1 this morning; pt states this is something she does chronically at LTC[facility]. - Discharge Disposition: Skilled Care @ [facility] Condition: Good Prescriptions: New Amox Tr/Potass Clav. 400 mg [Augmentin 400 MG/5 ML] 800 mg G-TUBE Q12H 5 Days #1 bottle Continue Promethazine 6.25 mg/5 ml [Phenergan 6.25 mg/5 ml Syrup] 20 ml PEG DAILY Pravastatin Sodium 20 mg PEG DAILY Omeprazole [Omeprazole+Syrspend Sf Alanna] 40 mg PEG DAILY Multivitamin [Daily Multivitamin] 1 each PEG DAILY Fentanyl 25Mcg Patch [Duragesic 25MCG Patch] 25 mcg PEG Q3D Bisacodyl 10 mg [Dulcolax 10 MG SUPP] 10 mg RC DAILY PRN Oxybutynin Chloride 5 mg G-TUBE DAILY Gabapentin [Neurontin] 300 mg G-TUBE DAILY Levetiracetam [Keppra] 500 mg G-TUBE BID Lisinopril [Zestril 40 mg] 60 mg G-TUBE DAILY Lorazepam 1 mg [Ativan 1 MG] 1 mg PO BID Metoprolol Tartrate 25 mg [Lopressor 25MG Tab] 25 mg PO BID Docusate Sodium [Colace] 50 mg PO BID Sorbitol Solution [Sorbitol] 60 ml IR DAILY Aspirin 81 mg PEG DAILY #0 Rivaroxaban 10 mg Tablet [Xarelto 10 mg Tablet] 10 mg PEG DAILY #0 Fluoxetine HCl [Prozac] 60 mg PO DAILY Hydrocodone/APAP 10/325 mg [Dagmar 10/325 MG Tablet] 1 tab G-TUBE QID Tizanidine HCl 4 mg [Zanaflex 4 MG] 4 mg PO BID PRN PRN Reason: Muscle Spasms Promethazine 6.25 mg/5 ml [Phenergan 6.25 mg/5 ml Syrup] 6.25 mg G- TUBE Q6H PRN PRN Reason: Nausea Mag Hydrox/Al Hydrox/Simeth [Mylanta Maximum Strength Liq] 15 ml PO Q6H PRN PRN Reason: gastric distress Acetaminophen [Tylenol] 325 mg G-TUBE Q4H PRN PRN Reason: Fever Baclofen 20 mg G-TUBE QID Insulin NPH Human Isophane [Humulin N] 30 unit SQ DAILY Insulin Detemir [Levemir] 80 unit SQ HS Insulin Lispro [Humalog] 0 unit SQ UD
[2017-05-22] MEDS: Zestril 20 MG G-TUBE SCH (10:01)
[2017-05-22] MEDS: Augmentin 400 MG/5 ML G-TUBE SCH (10:01)
[2017-05-22] MEDS: PROTONIX 40 MG IV IV SCH (10:01)
[2017-05-22] MEDS: Lopressor 25MG Tab G-TUBE SCH (10:01)
[2017-05-22] MEDS: LIORESAL 10 MG G-TUBE SCH (10:02)
[2017-05-22] MEDS: BABY ASPIRIN 81 MG CHEW G-TUBE SCH (10:02)
[2017-05-22] MEDS: XARELTO 10 MG TABLET G-TUBE SCH (10:02)
[2017-05-22] MEDS: KEPPRA 500 MG G-TUBE SCH (10:02)
[2017-05-22] MEDS: Prozac 20 MG G-TUBE SCH (10:02)
[2017-05-22] MEDS: VANCOCIN 1 GM VIAL*** 1.25 GM in Sodium Chloride 0.9% 250 ML 250 ML IV SCH (10:55)
== END 2017-05-22 11:25 | DRG 871 ==
LOC: ED 09:45 → ICU 13:54 → MED SURG 05-19 13:51
PROVIDERS: ADMIT Family Medicine; ATTEND Family Medicine
DX: E11.65 Type 2 diabetes mellitus with hyperglycemia (principal); A41.9 Sepsis, unspecified organism; E11.00 Type 2 diabetes mellitus with hyperosmolarity without nonketotic hyperglycemic-hyperosmolar coma (NKHHC); J98.11 Atelectasis; N39.0 Urinary tract infection, site not specified; N10 Acute pyelonephritis; G81.90 Hemiplegia, unspecified affecting unspecified side; F03.91 Unspecified dementia, unspecified severity, with behavioral disturbance; E87.0 Hyperosmolality and hypernatremia; E11.52 Type 2 diabetes mellitus with diabetic peripheral angiopathy with gangrene; Z79.4 Long term (current) use of insulin; I10 Essential (primary) hypertension; Z93.1 Gastrostomy status; F03.90 Unspecified dementia, unspecified severity, without behavioral disturbance, psychotic disturbance, mood disturbance, and anxiety; I48.91 Unspecified atrial fibrillation; Z79.01 Long term (current) use of anticoagulants; Z79.899 Other long term (current) drug therapy; R11.10 Vomiting, unspecified; G89.4 Chronic pain syndrome; K21.9 Gastro-esophageal reflux disease without esophagitis; G47.00 Insomnia, unspecified; F41.8 Other specified anxiety disorders; G62.9 Polyneuropathy, unspecified; Z86.73 Personal history of transient ischemic attack (TIA), and cerebral infarction without residual deficits
CPT/HCPCS: 36000; 36415; 71045; 71250; 74022; 80048; 80053; 80202; 81000; 82805; 82962; 83605; 83735; 83880; 84134; 84484; 85025; 85027; 87040; 87086; 87631; 93005; 93041; 94760; 96360; 96361; 96365; 96366; 96374; 96375; 99285; J1815; J1956; J2405; J2543; J3370; J3480; A9270-GY

== ENCOUNTER 2017-07-23 08:36 | Emergency (ER) | payer MEDICARE ==
[2017-07-23 08:55] VITALS: BP 163/81
--- NOTE | 2017-07-23 09:45 | ERPHSYRPT ---
- History of Present Illness Time Seen by Provider: 07/23/17 09:15 Source: patient Exam Limitations: clinical condition Patient Subjective Stated Complaint: [facility] staff reports patient has pulled gtube out this am and they were unable to put it back in. Triage Nursing Assessment: patient arrives per [place] van in a wheelchair. 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 patient alert/ oriented. speech slow at times. skin w/d, color normal, resp easy. has surgical wound noted mid abd with small amt clear drainage. no bleeding noted at this time. Physician History: PATIENT WITH OF PREVIOUS CVA WITH PARALYSIS, EXPRESSIVE APHASIA, ACCIDENTLY PULLED OUT PEG TUBE, UNABLE TO REINSERT PEG TUBE A LONG TERM. Timing/Duration: yesterday Modifying Factors: Improves With: nothing Associated Symptoms: denies symptoms Allergies/Adverse Reactions: No Known Drug Allergies Allergy (Verified 07/23/17 08:55) Home Medications: Bisacodyl 10 mg [Dulcolax 10 MG SUPP] 10 mg RC DAILY PRN 03/28/14 [History ] Fentanyl 25Mcg Patch [Duragesic 25MCG Patch] 25 mcg PEG Q3D 03/28/14 [ History] Multivitamin [Daily Multivitamin] 1 each PEG DAILY 03/28/14 [History] Omeprazole [Omeprazole+Syrspend Sf Alanna] 40 mg PEG DAILY 03/28/14 [History] Pravastatin Sodium 20 mg PEG DAILY 03/28/14 [History] Promethazine 6.25 mg/5 ml [Phenergan 6.25 mg/5 ml Syrup] 20 ml PEG DAILY 03/28/14 [History] Gabapentin [Neurontin] 300 mg G-TUBE DAILY 03/25/17 [History] Levetiracetam [Keppra] 500 mg G-TUBE BID 03/25/17 [History] Lisinopril [Zestril 40 mg] 60 mg G-TUBE DAILY 03/25/17 [History] Lorazepam 1 mg [Ativan 1 MG] 1 mg PO BID 03/25/17 [History] Oxybutynin Chloride 5 mg G-TUBE DAILY 03/25/17 [History] Docusate Sodium [Colace] 50 mg PO BID 03/28/17 [History] Metoprolol Tartrate 25 mg [Lopressor 25MG Tab] 25 mg PO BID 03/28/17 [ History] Sorbitol Solution [Sorbitol] 60 ml IR DAILY 03/28/17 [History] Acetaminophen [Tylenol] 325 mg G-TUBE Q4H PRN 05/16/17 [History] Baclofen 20 mg G-TUBE QID 05/16/17 [History] Fluoxetine HCl [Prozac] 60 mg PO DAILY 05/16/17 [History] Hydrocodone/APAP 10/325 mg [[place] 10/325 MG Tablet] 1 tab G-TUBE QID 05/16 [History] Insulin Detemir [Levemir] 60 unit SQ HS 05/16/17 [History] Insulin Lispro [Humalog] 0 unit SQ UD 05/16/17 [History] Mag Hydrox/Al Hydrox/Simeth [Mylanta Maximum Strength Liq] 15 ml PO Q6H PRN [History] Tizanidine HCl 4 mg [Zanaflex 4 MG] 4 mg PO BID PRN 05/16/17 [History] Hx Tetanus, Diphtheria Vaccination/Date Given: Yes Hx Influenza Vaccination/Date Given: Yes Hx Pneumococcal Vaccination/Date Given: Yes - Review of Systems Constitutional: No Fever, No Chills Eyes: No Symptoms Ears, Nose, & Throat: No Symptoms Respiratory: No Cough, No Dyspnea Cardiac: No Chest Pain, No Edema, No Syncope Abdominal/Gastrointestinal: No Abdominal Pain, No Nausea, No Vomiting, No Diarrhea Genitourinary Symptoms: No Dysuria Musculoskeletal: No Back Pain, No Neck Pain Skin: No Rash Neurological: No Dizziness, No Focal Weakness, No Sensory Changes Psychological: No Symptoms Endocrine: No Symptoms All Other Systems: Reviewed and Negative - Past Medical History Pertinent Past Medical History: Yes Neurological History: Stroke ENT History: No Pertinent History Cardiac History: Arrhythmia, High Cholesterol, Hypertension Respiratory History: No Pertinent History Endocrine Medical History: Diabetes Type II Musculoskeletal History: Other GI Medical History: GERD, Other History: Other Psycho-Social History: Anxiety, Depression Female Reproductive Disorders: No Pertinent History Other Medical History: G-TUBE, DYSPHAGIA, EXPRESSIVE LANGUAGE DISORDER, HTN, URINARY URGENCY, EXPRESSIVE APASHIA, BACK PAIN, CONSTIPATION AFIB, VASCULAR DEMENTIA WITH BEHAVIORAL DISTURBANCE, CHRONIC PAIN SYNDROME, CONVULSIONS, GERD, ANXIETY, NEUROMUSCULAR RESTLESS LEGS, POLYNEUROPATHY, INSOMNIA, CONTRACTURE LEFT ANKLE, - Past Surgical History Past Surgical History: Yes Neuro Surgical History: No Pertinent History Cardiac: No Pertinent History Respiratory: No Pertinent History Gastrointestinal: Cholecystectomy, Other Genitourinary: No Pertinent History Musculoskeletal: No Pertinent History Female Surgical History: No Pertinent History Other Surgical History: PEG TUBE PLACEMENT - Social History Smoking Status: Former smoker Exposure to second hand smoke: No Drug Use: none Patient Lives Alone: No - Female History Hx Now: No - Nursing Vital Signs Nursing Vital Signs: Initial Vital Signs Temperature 98.5 F 07/23/17 08:45 Pulse Rate 93 H 07/23/17 08:45 Respiratory Rate 16 07/23/17 08:45 Blood Pressure 163/81 07/23/17 08:45 O2 Sat by Pulse Oximetry 99 07/23/17 08:45 Pain Scale Pain Intensity 0 - Physical Exam General Appearance: no apparent distress, alert Eye Exam: PERRL/EOMI, eyes nml inspection Ears, Nose, Throat Exam: normal ENT inspection, TMs normal, pharynx normal, moist mucous membranes Neck Exam: normal inspection, non-tender, supple, full range of motion Respiratory Exam: normal breath sounds, lungs clear, No respiratory distress Cardiovascular Exam: regular rate/rhythm, normal heart sounds, normal peripheral pulses Gastrointestinal/Abdomen Exam: soft, normal bowel sounds, other (SUPRAUMBILICAL PEG TUBE SITE CLEAN NO DRAINAGE), No tenderness, No mass Back Exam: normal inspection, normal range of motion, No CVA tenderness, No vertebral tenderness Extremity Exam: normal inspection, normal range of motion, pelvis stable Neurologic Exam: alert, oriented x 3, cooperative, normal mood/affect, nml cerebellar function, nml station & gait, sensation nml, other (LEFT HEMIPARALYSIS), No motor deficits Skin Exam: normal color, warm, dry, No rash Lymphatic Exam: No adenopathy SpO2 Interpretation: normal SpO2: 99 Oxygen Delivery: Room Air Procedures - Additional Procedures Additional Procedures: gastric tube replacement (GASTROSTOMY SITE CLEANSED WITH HIBICLENS, INSERTION OF 16 GREEK COUDE MALIN CATHETER, INFLATION OF BULB 5ML SALINE, GASTRIC CONTENTS NOTED OUT OF TUBE) - Progress Progress: improved Counseled pt/family regarding: diagnosis, need for follow-up - Departure Time of Disposition: 09:46 Departure Disposition: Home Clinical Impression: INSERTION PEG TUBE Condition: Stable Critical Care Time: No Referrals: SYLWIA STODDARD MD [Primary Care Provider] - Additional Instructions: CONTINUE ALL CURRENT MEDICATIONS. FOLLOWUP WITH YOUR PRIMARY CARE PROVIDER NEEDED.
[2017-07-23 09:51] VITALS: PULSE 90; O2SAT 95
== END 2017-07-23 09:51 ==
LOC: ED 08:36
DX: Z43.1 Encounter for attention to gastrostomy (principal); I69.320 Aphasia following cerebral infarction; I69.369 Other paralytic syndrome following cerebral infarction affecting unspecified side; Z79.899 Other long term (current) drug therapy; E11.9 Type 2 diabetes mellitus without complications; Z79.4 Long term (current) use of insulin
CPT/HCPCS: 43760; 99284